=== PATIENT | female | born 1935 | race Caucasian/White ===

== ENCOUNTER → 2016-11-29 | Day surgery (SDC) | payer OTHER, MEDICARE ==
[2016-11-27 11:56] VITALS: BMI 25.0
[~2016-11-29] VITALS: Ht 162.6 cm; Wt 68.2 kg
[~2016-11-29] MED LIST: AMIO200T PO; CALC500T83 PO; CLON0.1T12 PO; CRD200 PO; FRS/40 PO; HydrALAZINE HCL 20 MG/ML VIAL ONE; LATA0.5S OPB; LEVO75TA5 PO; LIDOCAINE HCL 2% 2 ML VIAL (20MG/ML) ONE; METO50TA7 PO; MIDAZOLAM HCL 1 MG/ML 2ML VIAL ONE; ONDANSETRON INJ 2 MG/ML 2 ML VIAL ONE; OXYC1TAB3 PO; POTA20TA16 PO; PROPOFOL IV EMULSION 10 MG/ML 20 ML VIAL IV ONE; TIMO0.5S35 OPB; XRL15 PO
[2016-11-29 14:25] VITALS: TEMP 36.5
[2016-11-29 14:26] VITALS: Ht 162.6 cm; Wt 68.2 kg
--- NOTE | 2016-11-29 15:21 | GI REPORT ---
Procedure Date: 11/29/2016 2:49 PM Procedure: Colonoscopy Indications: High risk colon cancer surveillance: Personal history of colonic polyps Medicines: Propofol per Anesthesia Complications: No immediate complications. Estimated blood loss: Minimal. Estimated Blood Loss: Estimated blood loss was minimal. Procedure: Pre-Anesthesia Assessment: - Prior to the procedure, a History and Physical was performed, and patient medications and allergies were reviewed. The patient's tolerance of previous anesthesia was also reviewed. The risks and benefits of the procedure and the sedation options and risks were discussed with the patient. All questions were answered, and informed consent was obtained. Prior Anticoagulants: The patient has taken no previous anticoagulant or antiplatelet agents. ASA Grade Assessment: III - A patient with severe systemic disease. After reviewing the risks and benefits, the patient was deemed in satisfactory condition to undergo the procedure. After I obtained informed consent, the scope was passed under direct vision. Throughout the procedure, the patient's blood pressure, pulse, and oxygen saturations were monitored continuously. The On-site loaner was introduced through the anus and advanced to the cecum, identified by appendiceal orifice and ileocecal valve. The colonoscopy was performed without difficulty. The patient tolerated the procedure well. The quality of the bowel preparation was fair. Findings: The perianal and digital rectal examinations were normal. Pertinent negatives include normal sphincter tone, no palpable rectal lesions and no anal lesion or abnormality was detected. A 5 mm polyp was found at 30 cm proximal to the anus. The polyp was sessile. The polyp was removed with a cold snare. Resection and retrieval were complete. Estimated blood loss was minimal. Verification of patient identification for the specimen was done by the physician and echocardiograph technician using the patient's name and medical record number. The exam was otherwise without abnormality. The retroflexed view of the distal rectum and anal verge was normal and showed no anal or rectal abnormalities. Impression: - One 5 mm polyp at 30 cm proximal to the anus, removed with a cold snare. Resected and retrieved. - The examination was otherwise normal. - The distal rectum and anal verge are normal on retroflexion view. Recommendation: - Discharge patient to home (ambulatory). - Patient has a contact number available for emergencies. The signs and symptoms of potential delayed complications were discussed with the patient. Return to normal activities tomorrow. Written discharge instructions were provided to the patient. - Resume regular diet. - Repeat colonoscopy for surveillance based on pathology results. MD Homer Islas MD 11/29/2016 3:21:54 PM This report has been signed electronically. Note Initiated On: 11/29/2016 2:49 PM I attest to the content of the Intraoperative Record and orders documented therein, exceptions below
--- NOTE | 2016-11-29 15:24 | Discharge Instructions ---
Endoscopy Patient Instructions Date / Procedure(s) Performed Nov 29, 2016. Colonoscopy Allergy Information Coded Allergies: Atorvastatin (Verified Allergy, Unknown, LOUIS's, 11/29/16) Bupropion (Verified Allergy, Unknown, LOUIS's, 11/29/16) ARTUR Inhibitors (Verified Adverse Reaction, Unknown, Cough, 11/29/16) Discharge Date / Findings Nov 29, 2016. small polyp at 30 cm removed Medication Instructions Stopped Medication(s): XARELTO LAST DOSE 11/24/16 Restart Stopped Medication(s): Reported Home Medications Medications Dose Route/Sig Max Daily Dose Days Date Category Klor-Con (Potassium Chloride) 20 Meq Tabcr 20 Meq PO DAILY PRN 11/27/16 Reported Calcium 500 Mg Tab 1 Tab PO BID 11/27/16 Reported Levothyroxine Sodium 75 Mcg Tab 1 Tab PO QAM 09/03/16 Reported Lasix (Furosemide) 40 Mg Tab 40 Mg PO DAILY PRN 09/03/16 Reported Timoptic (Timolol Maleate (Ophth)) 0.5 % Nancy 1 Drops OPB QAM 09/03/16 Reported Xalatan 0.005% Oph Nancy (Latanoprost) 0.005 % Nancy 1 Drops OPB 09/03/16 Reported Toprol-Xl (Metoprolol Succinate) 50 Mg Tabcr 50 Mg PO BID 09/03/16 Reported Catapres (Clonidine Hcl) 0.1 Mg Tab 1 Tab PO QPM 09/03/16 Reported Xarelto (Rivaroxaban) 15 Mg Tab 1 Tab PO QPM 09/03/16 Reported Cordarone (Amiodarone Hcl) 200 Mg Tab 200 Mg PO QPM 11/14/12 Reported Reported Home Medications Medications Dose Route/Sig Max Daily Dose Days Date Category Klor-Con (Potassium Chloride) 20 Meq Tabcr 20 Meq PO DAILY PRN 11/27/16 Reported Calcium 500 Mg Tab 1 Tab PO BID 11/27/16 Reported Levothyroxine Sodium 75 Mcg Tab 1 Tab PO QAM 09/03/16 Reported Lasix (Furosemide) 40 Mg Tab 40 Mg PO DAILY PRN 09/03/16 Reported Timoptic (Timolol Maleate (Ophth)) 0.5 % Nancy 1 Drops OPB QAM 09/03/16 Reported Xalatan 0.005% Oph Nancy (Latanoprost) 0.005 % Nancy 1 Drops OPB 09/03/16 Reported Toprol-Xl (Metoprolol Succinate) 50 Mg Tabcr 50 Mg PO BID 09/03/16 Reported Catapres (Clonidine Hcl) 0.1 Mg Tab 1 Tab PO QPM 09/03/16 Reported Xarelto (Rivaroxaban) 15 Mg Tab 1 Tab PO QPM 09/03/16 Reported Cordarone (Amiodarone Hcl) 200 Mg Tab 200 Mg PO QPM 11/14/12 Reported Provider Instructions Activity Restrictions - No exercising or heavy lifting for 24 hours. - Do not drink alcohol the day of the procedure. - Do not drive a car or operate machinery until the day after the procedure. - Do not make any important decisions or sign important papers in 24 hours after the procedure. Following Day: - Return to full activity which may include returning to work/school. Diet Start your diet with liquids and light foods (jello, soup, juice, toast). Then eat your usual diet if not nauseated. Treatment For Common After Affects For mild abdominal pain, bloating, or excessive gas: - Rest - Eat lightly - Lie on right side Follow-Up Information Follow-up with DR GRAF as scheduled Anesthesia Information What You Should Know You have had a procedure that required some medicine to reduce anxiety and discomfort. This treatment is called moderate sedation. After receiving the treatment, you may be sleepy, but you will be able to breathe on your own. The effects of the treatment may last for several hours. Follow these instructions along with Activity/Diet recommendations noted above: * Do NOT do anything where dizziness or clumsiness would be dangerous. * Rest quietly at home today, then you can be up and about tomorrow. * Have a responsible person stay with you the rest of today. * You may have had an I.V. today. If so, you may take the dressing off later today. Recommendations Call your doctor if: * Trouble breathing * Continuous vomiting for more than 24 hours * Temperature above 101 degrees * Severe abdominal pain or bloating * Pain not relieved by pain medicine ordered * There is increased drainage or redness from any incision * A large amount of rectal bleeding greater than 2-3 tablespoons. (If you had a polyp/s removed or have hemorrhoids, a small amount of blood - from the rectum is to be expected.) * You have any unanswered questions or concerns. IN THE EVENT OF A SERIOUS EMERGENCY, GO TO THE NEAREST EMERGENCY ROOM Your discharge instructions were prepared by provider Homer Escobar. Patient Instructions Signature Page Flora Ferris Patient (or Guardian) Signature/Date: I have read and understand the instructions given to me by my caregivers. Caregiver/RN/Doctor Signature/Date: The above-named patient and/or guardian has received patient instructions on this date. + Original Patient Signature Page (only) stays with chart. Please make copy for patient.
--- NOTE | 2016-11-29 15:49 | Anesthesiology Progress Note ---
Anesthesia Post Op Note Date & Time Nov 29, 2016 at 15:49 Vital Signs Pain Intensity: 0 Vital Signs Past 12 Hours Date Time Temp Pulse Resp B/P Pulse Ox O2 Delivery O2 Flow Rate FiO2 11/29/16 15:21 57 18 178/76 94 Room Air 11/29/16 14:25 36.5 55 18 191/89 95 Room Air Notes Mental Status: alert / awake / arousable, participated in evaluation Pt Amnestic to Procedure: Yes Nausea / Vomiting: adequately controlled Pain: adequately controlled Airway Patency, RR, SpO2: stable & adequate BP & HR: stable & adequate Hydration State: stable & adequate Anesthetic Complications: no major complications apparent
[2016-11-29 16:32] VITALS: BP 166/72; PULSE 56; O2SAT 94
== END | disposition home or self-care (01) ==
LOC: C.GI 14:02
PROVIDERS: ATTEND Internal Medicine Gastroenterology
DX: Z12.11 Encounter for screening for malignant neoplasm of colon (principal); Z86.010 Personal history of colon polyps; K63.5 Polyp of colon; E78.5 Hyperlipidemia, unspecified; I12.9 Hypertensive chronic kidney disease with stage 1 through stage 4 chronic kidney disease, or unspecified chronic kidney disease; N18.9 Chronic kidney disease, unspecified; Z91.041 Radiographic dye allergy status; Z88.8 Allergy status to other drugs, medicaments and biological substances

== ENCOUNTER → 2017-03-28 | Outpatient (CLI) | payer OTHER, MEDICARE ==
[~2017-03-28] MED LIST changes: -HydrALAZINE HCL 20 MG/ML VIAL ONE; -LIDOCAINE HCL 2% 2 ML VIAL (20MG/ML) ONE; -MIDAZOLAM HCL 1 MG/ML 2ML VIAL ONE; -ONDANSETRON INJ 2 MG/ML 2 ML VIAL ONE; -PROPOFOL IV EMULSION 10 MG/ML 20 ML VIAL IV ONE
[2017-03-28 14:02] LABS: THYROID STIMULATING HORMONE 3.14 uIu/ml (0.300-4.500)
== END | disposition home or self-care (01) ==
LOC: C.LAB 12:29
PROVIDERS: ATTEND Internal Medicine Endocrinology, Diabetes & Metabolism
DX: Z79.899 Other long term (current) drug therapy (principal); D47.2 Monoclonal gammopathy

== ENCOUNTER → 2017-05-27 | Outpatient (CLI) | payer OTHER, MEDICARE ==
[2017-05-27 13:08] LABS: ALT/SGPT 24 U/L (12-78); BLOOD UREA NITROGEN 14 mg/dl (7-18); BUN/CREATININE RATIO 12.6 (10-20); CARBON DIOXIDE 28 mmol/L (21-32); CHLORIDE 106 mmol/L (98-107); GLUCOSE 86 mg/dl (70-99); POTASSIUM 3.9 mmol/L (3.5-5.1); SODIUM 140 mmol/L (136-145)
[2017-05-27 13:11] LABS: ALKALINE PHOSPHATASE 72 U/L (45-117); AST/SGOT 22 U/L (15-37)
== END | disposition home or self-care (01) ==
LOC: C.LAB1850 11:12
PROVIDERS: ATTEND Internal Medicine Cardiovascular Disease
DX: E78.5 Hyperlipidemia, unspecified (principal)

== ENCOUNTER 2017-06-30 07:53 | Emergency (ER) | payer OTHER, MEDICARE ==
[~2017-06-30] VITALS: Ht 160 cm; Wt 75.2 kg
[~2017-06-30 07:53] MED LIST changes: -CRD200 PO; -OXYC1TAB3 PO
[2017-06-30 08:04] VITALS: TEMP 36.6; Ht 160 cm; Wt 75.2 kg
[2017-06-30] MEDS ORDERED: OXYCODONE HCL IR 5 MG TAB (IMMEDIATE RELEASE) PO STA (08:23)
[2017-06-30] MEDS ORDERED: METOPROLOL SUCC 50MG EXT REL TAB PO STA (08:28)
[2017-06-30] MEDS ORDERED: CRD200 PO (08:46)
--- NOTE | 2017-06-30 09:09 | DIAGNOSTIC IMAGING REPORT ---
L KNEE 3 VIEWS CLINICAL HISTORY: l knee pain pain COMPARISON: None. DISCUSSION: Moderate degenerative change all major joint compartments. Moderate degenerative irregularity of the articular services. Small reactive osteophytes throughout. No well-defined fracture dislocation. No significant joint effusion. There is no evidence for soft tissue swelling. IMPRESSION: Rather significant degenerative change all major joint compartments. No acute process. The above report was generated using voice recognition software. It may contain grammatical, syntax or spelling errors. Electronically signed by: George Barbosa M.D. 06/30/2017 9:07 AM Dictated Date/Time: 06/30/2017 9:07 AM
--- NOTE | 2017-06-30 09:10 | DIAGNOSTIC IMAGING REPORT ---
L VENOUS DOPP LOWER EXT UNILAT CLINICAL HISTORY: l knee pain recent travel pain. Edema. TECHNIQUE: Venous Doppler COMPARISON STUDY: None FINDINGS: Normal study IMPRESSION: Normal study. The above report was generated using voice recognition software. It may contain grammatical, syntax or spelling errors. Electronically signed by: George Barbosa M.D. 06/30/2017 9:08 AM Dictated Date/Time: 06/30/2017 9:08 AM
[2017-06-30] MEDS ORDERED: MoRPHine SULFATE 4 MG/ML 1 ML CARP\\VIAL IM STA (09:38)
--- NOTE | 2017-06-30 10:00 | DIAGNOSTIC IMAGING REPORT ---
L LOWER EXTREMITY WITHOUT CT DOSE: 181.25 mGy.cm HISTORY: Pain l knee pain TECHNIQUE: Multiaxial CT images of the left knee were performed and reformatted in the sagittal and coronal plane without the use of contrast. A dose lowering technique was utilized adhering to the principles of ALARA. COMPARISON: None. FINDINGS: Considerable degenerative change all major joint compartments. Moderate peripheral osteophytic reaction throughout all components of the joint. No evidence for fracture or acute bony abnormality. No significant joint effusion. IMPRESSION: Considerable degenerative change all major joint compartments. No acute process. The above report was generated using voice recognition software. It may contain grammatical, syntax or spelling errors. Electronically signed by: George Barbosa M.D. 06/30/2017 9:59 AM Dictated Date/Time: 06/30/2017 9:54 AM
[2017-06-30 12:18] VITALS: BP 163/108; PULSE 111; O2SAT 98
[2017-06-30] MEDS ORDERED: OXYC1TAB3 PO (12:21)
--- NOTE | 2017-06-30 14:41 | EMERGENCY ROOM VISIT NOTE ---
History Report prepared by Luanibkirill: Kathrin Chi Under the Supervision of: Dr. Jett Goodwin D.O. First contact with patient: 07:57 Chief Complaint: KNEEPAIN Stated Complaint: KNEE PAIN History of Present Illness The patient is an 81 year old female who presents to the Emergency Room with complaints of intermittent left knee pain for the past 3 weeks. She is accompanied by her daughter. She reports she was in the country of [facility] on June 07 for a wedding, when she fell and fractured her left wrist. She denies any loss of consciousness or other traumatic injuries. She was treated with a cast and sling when she returned to [place], and locally has followed with Dr. Costello. At the time of the fall, her left knee was swollen and painful, but CT's at [facility] in [place] were negative and the pain initially improved. Today, her pain has worsened to the point that she is unable to bear weight. The majority of her pain is in the posterior left knee. She rates her current discomfort as a 10/10 in severity. Tylenol has provided minimal relief. She denies any tingling or numbness in her foot. She denies any swelling in her calf. The patient has a history of hypertension and atrial fibrillation and notes she did not take her medications last night or this morning. She denies any headache, change in vision, fevers, chest pain, shortness of breath, nausea , vomiting, diarrhea, and pain with urination. Source of History: patient Onset: June 09, 2017 Position: knee (left) Symptom Intensity: 8/10 Timing: intermittent Modifying Factors (Worsening): movement (walking) Modifying Factors (Relieving): tylenol Associated Symptoms: No LOC, No fevers, No headache, No chest pain, No SOB, No nausea, No vomiting, No melena, No diarrhea, No urinary symptoms, No numbness (left foot) Review of Systems See HPI for pertinent positives & negatives. A total of 10 systems reviewed and were otherwise negative. Past Medical & Surgical Medical Problems: (1) Atrial fibrillation (2) Hypertension (3) Left wrist fracture Family History Cancer Diabetes mellitus Heart disease Hypertension Lung disease Social History Smoking Status: Former Smoker Alcohol Use: occasionally Drug Use: none Marital Status: Housing Status: lives alone Occupation Status: retired Current/Historical Medications Scheduled Amiodarone HCl (Amiodarone HCl), 200 MG PO DAILY Calcium (Calcium), 500 MG PO BID Clonidine Hcl (Catapres), 0.1 MG PO QPM Latanoprost (Xalatan 0.005% Oph Nancy), 1 DROPS OPB HS Levothyroxine Sodium (Levothyroxine Sodium), 75 MCG PO QAM Metoprolol Succ (Toprol Xl) (Toprol-Xl), 50 MG PO BID Rivaroxaban (Xarelto), 15 MG PO QPM Timolol Maleate (Ophth) (Timoptic), 1 DROPS OPB QAM Scheduled PRN Furosemide (Lasix), 40 MG PO DAILY PRN for LEG SWELLING Oxycodone Immediate Rel Tab (Roxicodone Ir), 5 MG PO Q6H PRN for Pain Potassium Ext Rel (Klor-Con), 20 MEQ PO DAILY PRN for WITH LASIX Allergies Coded Allergies: Atorvastatin (Verified Allergy, Unknown, LOUIS's, 06/30/17) Bupropion (Verified Allergy, Unknown, LOUIS's, 06/30/17) ARTUR Inhibitors (Verified Adverse Reaction, Unknown, Cough, 06/30/17) Physical Exam Vital Signs Date Time Temp Pulse Resp B/P (MAP) Pulse Ox O2 Delivery O2 Flow Rate FiO2 06/30/17 12:18 111 18 163/108 98 Room Air 06/30/17 11:11 87 18 167/106 98 Room Air 06/30/17 09:38 88 18 190/110 98 Room Air 06/30/17 08:13 94 06/30/17 08:04 36.6 94 20 210/123 94 Room Air Physical Exam GENERAL: Patient is alert, well appearing, well nourished, no distress, non- toxic EYE EXAM: normal conjunctiva OROPHARYNX: no exudate, no erythema, lips, buccal mucosa, and tongue normal and mucous membranes are moist NECK: supple, no nuchal rigidity, no adenopathy, non-tender LUNGS: Clear to auscultation. Normal chest wall mechanics HEART: no murmurs, S1 normal and S2 normal ABDOMEN: abdomen soft, non-tender, normo-active bowel sounds, no masses, no rebound or guarding. BACK: Back is symmetrical on inspection and there is no deformity, no midline tenderness, no CVA tenderness. SKIN: no rashes and no bruising UPPER EXTREMITIES: Left upper extremity in forearm cast. Patient is able to wiggle fingers, gross sensation intact. LOWER EXTREMITIES: Flexion, extension of the hip and ankle without tenderness, flexion of the knee greater than 30 degrees with moderate/severe tenderness. Good pulses in popliteal fossa and DP. Unable to appreciate PT bilaterally. Warm , gross sensation intact. No pitting edema. Calves are equal bilaterally. No erythema of the knee. Skin is intact. NEURO EXAM: Normal sensorium Medical Decision & Procedures ER Provider Diagnostic Interpretation: Radiology results as stated below per my review and the radiologist's interpretation: L LOWER EXTREMITY WITHOUT CT DOSE: 181.25 mGy.cm HISTORY: Pain l knee pain TECHNIQUE: Multiaxial CT images of the left knee were performed and reformatted in the sagittal and coronal plane without the use of contrast. A dose lowering technique was utilized adhering to the principles of ALARA. COMPARISON: None. FINDINGS: Considerable degenerative change all major joint compartments. Moderate peripheral osteophytic reaction throughout all components of the joint. No evidence for fracture or acute bony abnormality. No significant joint effusion. IMPRESSION: Considerable degenerative change all major joint compartments. No acute process. The above report was generated using voice recognition software. It may contain grammatical, syntax or spelling errors. Electronically signed by: George Barbosa M.D. 06/30/2017 9:59 AM L VENOUS DOPP LOWER EXT UNILAT CLINICAL HISTORY: l knee pain recent travel pain. Edema. TECHNIQUE: Venous Doppler COMPARISON STUDY: None FINDINGS: Normal study IMPRESSION: Normal study. The above report was generated using voice recognition software. It may contain grammatical, syntax or spelling errors. Electronically signed by: George Barbosa M.D. 06/30/2017 9:08 AM L KNEE 3 VIEWS CLINICAL HISTORY: l knee pain pain COMPARISON: None. DISCUSSION: Moderate degenerative change all major joint compartments. Moderate degenerative irregularity of the articular services. Small reactive osteophytes throughout. No well-defined fracture dislocation. No significant joint effusion. There is no evidence for soft tissue swelling. IMPRESSION: Rather significant degenerative change all major joint compartments. No acute process. The above report was generated using voice recognition software. It may contain grammatical, syntax or spelling errors. Electronically signed by: George Barbosa M.D. 06/30/2017 9:07 AM Medications Administered Medications (Trade) Dose Ordered Sig/Merry Route Start Time Stop Time Status Last Admin Dose Admin Oxycodone HCl (Roxicodone Immediate Rel Tab) 5 mg NOW STAT PO 06/30/17 08:23 06/30/17 08:24 DC 06/30/17 08:29 5 MG Metoprolol Succinate (Toprol Xl Tab) 50 mg NOW STAT PO 06/30/17 08:28 06/30/17 08:29 DC 06/30/17 08:31 50 MG Morphine Sulfate (MoRPHine SULFATE INJ) 4 mg NOW STAT IM 06/30/17 09:38 06/30/17 09:40 DC 06/30/17 09:59 4 MG ED Course ED COURSE: Vital signs were reviewed and showed the patient is hypertensive. The patients medical record was reviewed The above diagnostic studies were performed and reviewed. ED treatments and interventions as stated above. 0811: The patient was evaluated in room B11. A complete history and physical examination was performed. 0823: Oxycodone HCl 5 mg PO. 0828: Toprol Xl tablet 50 mg PO. 0938: Morphine Sulfate 4 mg IM. 1020: I updated the patient on her results so far. She is resting comfortably. 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 1130: Case Management has spoken to the patient and her daughter. There will be a bed available at [facility] in a few days if the patient is comfortable going home until then. 1220: Upon reevaluation, the patient is feeling well and feels comfortable going home until [facility] has a bed open. I discussed my findings with the patient and she understands and agrees with the treatment plan. Based on the patients age, coexisting illnesses, exam and lab findings the decision to treat as an outpatient was made. The patient remained stable while under my care. The patient appeared well at the time of discharge. Medical Decision Etiologies such as fracture, dislocation, neurovascular compromise, compartment syndrome, soft tissue injury, as well as others were entertained. Patient is an 81-year-old female that presents to ER for severe pain behind her left knee. Neurovascularly intact. No tenderness in the hip or ankle. Full range of motion in the hip and ankle. X-ray of the knee and CT of the knee shows no obvious fracture. Patient was updated at bedside. Duplex shows no clots. Pain is solely located in the popliteal fossa. Is uncertain to cause at this time. Initially tried a rehabilitation which is not accepted to [facility]. Offered admission the patient prefers to go home. Patient was evaluated by care management and was discharged with OxyIR to follow-up with orthopedics and [facility]. Unable to perform MRI. I did chest importance of being extremely careful and not following as she is on blood thinners. Care management will attempt to schedule appointment with orthopedics tomorrow or Saturday. Discussed with Pt concerning signs and symptoms to watch out for. Pt was instructed to follow up with their PCP and discussed with the patient their option to return to the ED at anytime for persistent or worsening symptoms. The appropriate anticipatory guidance and out-patient management, including indications for return to the emergency department, were explained at length to the patient and understood. Medication Reconcilliation Current Medication List: was personally reviewed by me Blood Pressure Screening Patient's blood pressure: Elevated blood pressure Blood pressure disposition: Elevated BP felt to be situational Impression Primary Impression: Knee pain Additional Impression: Ambulatory dysfunction Scribe Attestation The scribe's documentation has been prepared under my direction and personally reviewed by me in its entirety. I confirm that the note above accurately reflects all work, treatment, procedures, and medical decision making performed by me. Departure Information Dispostion Home / Self-Care Prescriptions Oxycodone Immediate Rel Tab (ROXICODONE IR) 5 Mg Tab 5 MG PO Q6H Y for Pain, #14 TAB Prov: Jett Goodwin, 06/30/17 Referrals Georgiana Serrato,D.OMark (PCP) Patient Instructions ED Knee Pain O, My [facility] Additional Instructions Please follow up with your primary with in the next 24 hours. Any worsening of your symptoms, please return to the ED immediately. This includes any fevers greater than 100.4, worsening pain, falls, numbness or weakness in the leg, or any other concerning signs or symptoms from your standpoint. You were given medications during this visit that will inhibit your ability to drive, operate machinery and work. Please do NOT drive, operate machinery or work for the next 12hrs. You were also given a prescription for a narcotic/Oxy IR. While taking this medication you should also not drive, operate machinery and or work. Please follow up with health [facility] and orthopedics as soon as possible. Problem Qualifiers Primary Impression: Knee pain Chronicity: acute Laterality: left Qualified Codes: M25.562 - Pain in left knee
== END 2017-06-30 12:50 | disposition home or self-care (01) ==
LOC: EDBD 07:53 → C.EDB 07:55
DX: M25.562 Pain in left knee (principal); W19.XXXD Unspecified fall, subsequent encounter; I10 Essential (primary) hypertension; I48.91 Unspecified atrial fibrillation; Z87.891 Personal history of nicotine dependence; Z80.9 Family history of malignant neoplasm, unspecified; Z83.3 Family history of diabetes mellitus; Z82.49 Family history of ischemic heart disease and other diseases of the circulatory system; Z79.899 Other long term (current) drug therapy; Z79.01 Long term (current) use of anticoagulants

== ENCOUNTER → 2017-09-23 | Outpatient (CLI) | payer OTHER, MEDICARE ==
[~2017-09-23] MED LIST changes: -AMIO200T PO; +CRD200 PO; +OXYC1TAB3 PO
[2017-09-23 16:25] LABS: THYROID STIMULATING HORMONE 1.61 uIu/ml (0.300-4.500)
== END | disposition home or self-care (01) ==
LOC: C.LAB1850 14:48
PROVIDERS: ATTEND Internal Medicine Endocrinology, Diabetes & Metabolism
DX: Z51.81 Encounter for therapeutic drug level monitoring (principal); Z79.899 Other long term (current) drug therapy

== ENCOUNTER → 2018-01-16 | Day surgery (SDC) | payer OTHER, MEDICARE ==
[~2018-01-16] VITALS: Ht 160 cm; Wt 72.0 kg
[~2018-01-16] MED LIST changes: +LIDOCAINE HCL 2% 2 ML VIAL (20MG/ML) ONE; -METO50TA7 PO; +METO50TA8 PO; -OXYC1TAB3 PO; +PROPOFOL IV EMULSION 10 MG/ML 20 ML VIAL IV ONE
[2018-01-16 06:47] VITALS: BP 185/118; PULSE 101; TEMP 37.1; O2SAT 95; Ht 160 cm; Wt 72.0 kg
[2018-01-16 07:35] VITALS: BP 167/113; PULSE 95; O2SAT 99
--- NOTE | 2018-01-16 07:37 | History & Physical Bridge Note ---
H&P Re-Evaluation Bridge Note: I have examined the patient, reviewed the History & Physical and in the interval since the performance of the History & Physical I have noted the following changes of clinical significance: No changes noted. I reviewed the indications, procedure, risks and alternatives with her and she understands and agrees to proceed. Consent obtained.
[2018-01-16 07:40] VITALS: BP 155/91; PULSE 49; O2SAT 99
--- NOTE | 2018-01-16 07:45 | Cardioversion ---
Electricial Cardioversion Rpt Date of Service: January 16, 2018 Electrical Cardioversion Rprt The patient was brought to the laboratory being NPO after midnight and was identified in the laboratory, connected to the recording apparatus including electrocardiographic monitoring, noninvasive blood pressure monitoring and pulse oximetry. Anteroposterior patch electrodes were placed. The patient was anesthetized by the anesthesia department. Once adequate anesthesia was obtained a synchronized biphasic shock was delivered using 200 J with conversion to a sinus rhythm. The patient awoke from the anesthetic without sequela, will be observed briefly and then discharged.
[2018-01-16 07:50] VITALS: BP 136/86; PULSE 50; O2SAT 99
--- NOTE | 2018-01-16 08:27 | Anesthesiology Progress Note ---
Anesthesia Post Op Note Date & Time Jan 16, 2018 at 08:27 Vital Signs Pain Intensity: 0 Vital Signs Past 12 Hours Date Time Temp Pulse Resp B/P (MAP) Pulse Ox O2 Delivery O2 Flow Rate FiO2 01/16/18 08:15 48 16 143/92 (109) 95 Room Air 01/16/18 08:13 49 16 141/95 (110) 95 Room Air 01/16/18 08:03 49 16 132/90 (104) 95 Room Air 01/16/18 07:53 50 16 143/92 (109) 95 Room Air 01/16/18 07:50 50 18 136/86 99 Room Air 01/16/18 07:40 49 18 155/91 99 Nasal Cannula 4 01/16/18 07:35 95 18 167/113 99 Nasal Cannula 4 01/16/18 06:47 37.1 101 18 185/118 (140) 95 Room Air Notes Mental Status: alert / awake / arousable, participated in evaluation Pt Amnestic to Procedure: Yes Nausea / Vomiting: adequately controlled Pain: adequately controlled Airway Patency, RR, SpO2: stable & adequate BP & HR: stable & adequate Hydration State: stable & adequate Anesthetic Complications: no major complications apparent
--- NOTE | 2018-01-16 08:40 | Discharge Instructions ---
Discharge Instructions Date of Service Jan 16, 2018. Admission Reason for Admission: Atrial fibrillation Discharge Discharge Diagnosis / Problem: Electrical cardioversion Discharge Goals Goal(s): Improve disease control Activity Recommendations Activity Limitations: resume your previous activity . Instructions / Follow-Up Instructions / Follow-Up ACTIVITY RECOMMENDATIONS: * May resume driving tomorrow. SPECIAL CARE: * May apply burn ointment for skin irritation. * Please contact physician for any lightheadedness, dizziness or palpitations. Current Hospital Diet Patient's current hospital diet: AHA Diet (Heart Healthy) Discharge Diet Recommended Diet: AHA Diet (Heart Healthy) Pending Studies Studies pending at discharge: no Medical Emergencies . Who to Call and When: Medical Emergencies: If at any time you feel your situation is an emergency, please call 911 immediately. . Non-Emergent Contact Non-Emergency issues call your: Primary Care Provider . . "Provider Documentation" section prepared by Dmitri Garland. .
[2018-01-16 08:45] VITALS: BP 135/58; PULSE 48; O2SAT 95
== END | disposition home or self-care (01) ==
LOC: C.CATH 06:24
PROVIDERS: ATTEND Internal Medicine Cardiovascular Disease
DX: I48.0 Paroxysmal atrial fibrillation (principal); I12.9 Hypertensive chronic kidney disease with stage 1 through stage 4 chronic kidney disease, or unspecified chronic kidney disease; N18.3 Chronic kidney disease, stage 3 (moderate); E78.5 Hyperlipidemia, unspecified; I42.9 Cardiomyopathy, unspecified; E03.9 Hypothyroidism, unspecified; M81.0 Age-related osteoporosis without current pathological fracture; F17.200 Nicotine dependence, unspecified, uncomplicated; Z82.49 Family history of ischemic heart disease and other diseases of the circulatory system

== ENCOUNTER 2022-03-18 21:28 | Inpatient (IN) ==
--- NOTE | 2022-03-18 21:39 | Emergency Department Note ---
Impression & Plan Hypoxia ADMIT ED Provider Note HPI: The patient is an 86-year-old female with history of atrial fibrillation, on Xarelto, presents the emergency department chief complaint of cough and shortness of breath that has been ongoing since yesterday. In addition patient states that she feels very fatigued during this time. She denies any fevers, on arrival here to the ED she is noted to have an oxygen saturation of 89% and therefore was placed on 2 L nasal cannula oxygen. She is otherwise in no acute distress on my initial evaluation, she does not display any increased work of breathing. She states that she has been compliant with her Xarelto. ROS: -Pulmonary: Cough, shortness of breath -General: Generalized weakness/fatigue *10 point review systems was conducted and is otherwise negative unless stated above *Outpatient medications and allergy history reviewed PE: General: Alert, NAD HEENT: Normocephalic, atraumatic Eyes: Extraocular eye movement is intact, no scleral erythema Pulmonary: Diminished bilateral breath sounds with mild expiratory wheezing bilaterally, no crackles Cardio: Regular rate and rhythm GI: Abdomen is soft, nontender : No suprapubic tenderness MSK: No evidence of trauma or malformation of the extremities, no edema Skin: No evidence of rash Neuro: Alert, no focal deficits Psychiatric: Cooperative quality assurance monitor final: - An order was placed for continuous cardiac monitoring - Patient was noted to be in atrial fibrillation with a rate of 90 CTA CHEST: Moderate cardiomegaly with coronary artery calcifications. No pulmonary embolus or aortic dissection is seen. Atherosclerotic disease of aorta with no aneurysm. Large heterogeneous mass along the right lung base extending nearly over the entire right hemidiaphragm raising the concern for neoplasm. Mild mid upper lung emphysematous changes. Right lower lobe consolidation concerning for pneumonia. Mild lingular atelectasis versus residual infiltrate. Is Degenerative disease of the spine. Radiologist: Jenny Grier MD Study ready at 23:35 and initial results transmitted at 00:00 EKG: Rate: 96 Rhythm: Atrial fibrillation Intervals: Within normal limits ST changes: No ST elevation Time: 2155 Medical Decision Making: Patient presented to the emergency department with a chief complaint of cough and shortness of breath. She is noted to be hypoxic at 89% on room air on arrival in triage, she does not wear any baseline oxygen, she was placed on nasal cannula oxygen with good improvement. IV was established, lab work obtained, patient was placed on radiation monitor. Chest x-ray shows findings concerning for possible right lower lobe pleural effusion per my interpretation, lab work shows leukocytosis with slight left shift, blood cultures were ordered. Given finding on chest x-ray I did order CT angiography of the chest that shows evidence of no pulmonary embolism, no aortic dissection, there is noted to be atherosclerotic disease as well as coronary artery calcifications. There is a large heterogenous mass along the right lung base extending nearly over the entire right hemidiaphragm raising concern for possible neoplasm. Also noted a right lower lobe consolidation concerning for pneumonia. Patient was started on ceftriaxone and azithromycin following blood cultures being obtained. She was given some IV fluid here in the ED, in addition her high-sensitivity troponin level is slightly elevated at 15, no acute ischemic changes are noted on her EKG although CT imaging does show findings of coronary artery calcifications. Patient denies any chest pain. I discussed the above findings with the patient at the bedside, she is resting comfortably, oxygen saturations have remained stable on nasal cannula oxygen. Given all the above findings patient will be admitted for IV antibiotics and likely hematology/oncology consultation in regards to new finding of lung mass in addition to hypoxia. [facility] service was consulted for admission and the patient was in agreement for admission. She was admitted in improved condition for further care * CRITICAL CARE TIME: 45 min -Stabilization of hypoxia with oxygen saturation less than 90% on room air requiring supplemental oxygen for stabilization, time spent at the bedside, interpretation of diagnostic studies and arrangement of admission Diagnosis: 1. Hypoxia, acute 2. Lung mass, newly diagnosed 3. Right-sided pneumonia, community-acquired 4. Elevated high-sensitivity troponin level Disposition: Admission George Anderson DO Emergency Medicine Past Med/Surg History Medical History Atrial fibrillation Hypertension Surgical History History of cardioversion History of ear surgery History of tubal ligation Status post colposcopy Family History (Updated 03/07/20 @ 14:15 by Nel Campbell) Mother Colon cancer Father Hypertension Stroke Other Family history non-contributory No family history of adverse response to anesthesia No family history of bleeding disorder Social History Smoking Status: Current some day smoker Tobacco Type: Cigarettes Cigarettes Per Day: 1-4; Second Hand Exposure: No; Hx Alcohol Use: Yes Alcohol Intake Frequency Comment: occasional Hx Substance Use: No Preferred Language: Bruneian marital status: Single current occupational status: retired Feels Safe at Home: Yes Allergies Allergies Allergy/AdvReac Type Severity Reaction Status Date / Time atorvastatin Allergy Unknown LOUIS's Verified 03/19/22 00:45 bupropion Allergy Unknown LOUIS's Verified 03/19/22 00:45 ARTUR Inhibitors AdvReac Unknown Cough Verified 03/19/22 00:45 Home Meds Home Medications Medication Instructions Recorded Confirmed calcium carbonate 600 mg calcium 600 mg PO BID 05/17/19 03/19/22 (1,500 mg) tablet (Calcium) cholecalciferol (vitamin D3) 25 1,000 unit PO DAILY 05/17/19 03/19/22 mcg (1,000 unit) capsule (Vitamin D3) furosemide 40 mg tablet 40 mg PO DAILY PRN 05/17/19 03/19/22 latanoprost 0.005 % eye drops 1 drp OPB HS 05/17/19 03/19/22 levothyroxine 75 mcg tablet 75 mcg PO DAILY 05/17/19 03/19/22 rivaroxaban 15 mg tablet (Xarelto) 15 mg PO QPM 05/17/19 03/19/22 timolol maleate 0.25 % eye drops 1 drp OPHTHALMIC (EYE) QAM 05/17/19 03/19/22 (Timoptic) metoprolol succinate 50 mg 50 mg PO BID 03/07/21 03/19/22 tablet,extended release 24 hr ferrous sulfate 325 mg (65 mg 325 mg PO DAILY 02/03/22 03/19/22 iron) tablet sacubitril 49 mg-valsartan 51 mg 1 tab PO BID 02/03/22 03/19/22 tablet (Entresto) digoxin 250 mcg (0.25 mg) tablet 250 mcg PO UD 03/19/22 03/19/22 Results & Data (ED) Vital Signs Vital Signs - 24 hr 03/18/22 21:29 03/18/22 21:40 03/18/22 21:42 Pulse Rate 101 H Pulse Rate [Apical] 101 H Pulse Rhythm [Apical] Regular Pulse Strength [Apical] Respiratory Rate 16 22 Respiratory Effort / Characteristics Non-Labored Non-Labored Respiratory Depth Normal Normal Blood Pressure 143/84 H Blood Pressure [Left Arm] 169/119 H Blood Pressure Mean 103 Blood Pressure Mean [Left Arm] 135 Blood Pressure Position [Left Arm] Lying Pulse Oximetry 89 L 96 96 Oxygen Delivery Method Room Air Nasal Cannula Nasal Cannula Oxygen Flow Rate 3 3 Sepsis Recent Fever Within 48 Hours No Sepsis New/Unexplained Change in Mental Status N/A Sepsis Action Taken by Nursing No Action Required 03/18/22 22:45 03/19/22 00:43 Pulse Rate Pulse Rate [Apical] 85 98 H Pulse Rhythm [Apical] Regular Pulse Strength [Apical] Normal Respiratory Rate 20 22 Respiratory Effort / Characteristics Spontaneous Respiratory Depth Normal Blood Pressure Blood Pressure [Left Arm] 155/92 H 170/114 H Blood Pressure Mean Blood Pressure Mean [Left Arm] 113 132 Blood Pressure Position [Left Arm] Sitting Pulse Oximetry 98 95 Oxygen Delivery Method Nasal Cannula Nasal Cannula Oxygen Flow Rate 3 2 Sepsis Recent Fever Within 48 Hours Sepsis New/Unexplained Change in Mental Status Sepsis Action Taken by Nursing Laboratory Data Result diagrams: 03/18/22 21:45 03/18/22 21:45 Lab Results 03/18/22 03/18/22 03/18/22 Range/Units 21:45 21:45 21:45 WBC 13.32 H (4.8-10.8) K/uL RBC 4.27 (4.2-5.4) M/uL Hgb 13.4 (12.0-16.0) g/dL Hct 41.2 (37-47) % MCV 96.5 (80-100) fL MCH 31.4 (25-34) pg MCHC 32.5 (32-36) g/dL RDW Std Deviation 54.1 H (36.4-46.3) fL RDW Coeff of Jenna 15.3 H (11.5-14.5) % Plt Count 254 (130-400) K/uL MPV 9.3 (7.4-10.4) fL Immature Gran % (Auto) 0.3 % Neut % (Auto) 79.6 % Lymph % (Auto) 12.2 % Catron % (Auto) 7.2 % Eos % (Auto) 0.3 % Baso % (Auto) 0.4 % Neut # (Auto) 10.60 H (1.4-6.5) K/uL Lymph # (Auto) 1.63 (1.2-3.4) K/uL Catron # (Auto) 0.96 H (0.11-0.59) K/uL Eos # (Auto) 0.04 (0-0.5) K/uL Baso # (Auto) 0.05 (0-0.2) K/uL Immature Gran # (Auto) 0.04 H (0.00-0.02) K/uL PT 12.4 H (9.0-12.0) Seconds INR 1.2 H (0.9-1.1) APTT 30.3 (21.0-31.0) Seconds PTT Ratio 1.1 VBG pH (7.36-7.41) VBG pCO2 (38-50) mmHg VBG pO2 mmHg VBG HCO3 mmol/L VBG O2 Saturation % VBG Base Excess mEq/L Barometric Pressure mm/Hg Sodium 138 (136-145) mmol/L Potassium 4.3 (3.5-5.1) mmol/L Chloride 105 (98-107) mmol/L Carbon Dioxide 23 (21-32) mmol/L Anion Gap 10 (3-11) BUN 18 (6-23) mg/dl Creatinine 0.99 (0.6-1.2) mg/dl Est Cr Clr Drug Dosing 33.7 ml/min Est GFR ( Amer) 59.8 ml/min Est GFR (Non-Af Amer) 51.6 ml/min BUN/Creatinine Ratio 18.2 (10-20) Glucose 110 H (70-99(Fasting)) mg/dl Calcium 9.5 (8.5-10.1) mg/dl Total Bilirubin 1.4 H (0.2-1.0) mg/dl AST 22 (13-39) U/L ALT 14 (7-52) U/L Alkaline Phosphatase 72 (34-104) U/L Troponin I High Sens 15.8 H (0-14) pg/ml B-Natriuretic Peptide (0-100) pg/ml Total Protein 7.2 (6.0-8.3) gm/dl Albumin 4.5 (3.4-5.0) gm/dl Globulin 2.7 (2.5-4.0) gm/dl Albumin/Globulin Ratio 1.7 (0.9-2) Lipase 8 L (11-82) U/L SARS-CoV-2 (PCR) (Negative) Influenza Type A (PCR) (Neg) Influenza Type B (PCR) (Neg) RSV (RT-PCR) (Neg) 03/18/22 03/18/22 03/18/22 Range/Units 22:00 22:00 22:00 WBC (4.8-10.8) K/uL RBC (4.2-5.4) M/uL Hgb (12.0-16.0) g/dL Hct (37-47) % MCV (80-100) fL MCH (25-34) pg MCHC (32-36) g/dL RDW Std Deviation (36.4-46.3) fL RDW Coeff of Jenna (11.5-14.5) % Plt Count (130-400) K/uL MPV (7.4-10.4) fL Immature Gran % (Auto) % Neut % (Auto) % Lymph % (Auto) % Catron % (Auto) % Eos % (Auto) % Baso % (Auto) % Neut # (Auto) (1.4-6.5) K/uL Lymph # (Auto) (1.2-3.4) K/uL Catron # (Auto) (0.11-0.59) K/uL Eos # (Auto) (0-0.5) K/uL Baso # (Auto) (0-0.2) K/uL Immature Gran # (Auto) (0.00-0.02) K/uL PT (9.0-12.0) Seconds INR (0.9-1.1) APTT (21.0-31.0) Seconds PTT Ratio VBG pH 7.37 (7.36-7.41) VBG pCO2 42 (38-50) mmHg VBG pO2 56 mmHg VBG HCO3 24 mmol/L VBG O2 Saturation 88.8 % VBG Base Excess -1.2 mEq/L Barometric Pressure 729.5 mm/Hg Sodium (136-145) mmol/L Potassium (3.5-5.1) mmol/L Chloride (98-107) mmol/L Carbon Dioxide (21-32) mmol/L Anion Gap (3-11) BUN (6-23) mg/dl Creatinine (0.6-1.2) mg/dl Est Cr Clr Drug Dosing ml/min Est GFR ( Amer) ml/min Est GFR (Non-Af Amer) ml/min BUN/Creatinine Ratio (10-20) Glucose (70-99(Fasting)) mg/dl Calcium (8.5-10.1) mg/dl Total Bilirubin (0.2-1.0) mg/dl AST (13-39) U/L ALT (7-52) U/L Alkaline Phosphatase (34-104) U/L Troponin I High Sens (0-14) pg/ml B-Natriuretic Peptide 876 H (0-100) pg/ml Total Protein (6.0-8.3) gm/dl Albumin (3.4-5.0) gm/dl Globulin (2.5-4.0) gm/dl Albumin/Globulin Ratio (0.9-2) Lipase (11-82) U/L SARS-CoV-2 (PCR) NEGATIVE (Negative) Influenza Type A (PCR) Negative (Neg) Influenza Type B (PCR) Negative (Neg) RSV (RT-PCR) Negative (Neg) Administered Medications Azithromycin 500 mg/ Dextrose 255 mls @ 127.5 mls/hr IV NOW STA Stop: 03/19/22 02:20 Last Admin: 03/19/22 00:52 Dose: 127.5 mls/hr Documented by: [id number] Discontinued Medications Sodium Chloride (Nss 1000ml) 500 mls @ 999 mls/hr IV .Q31M ONE Stop: 03/19/22 00:51 Last Infusion: 03/19/22 01:34 Dose: 0 mls/hr Documented by: [id number] Admin: 03/19/22 00:53 Dose: 999 mls/hr Documented by: [id number] Ceftriaxone Sodium (Rocephin) 1,000 mg in 50 mls @ 100 mls/hr IV NOW STA Stop: 03/19/22 00:50 Last Infusion: 03/19/22 01:33 Dose: 0 mls/hr Documented by: [id number] Admin: 03/19/22 00:51 Dose: 100 mls/hr Documented by: [id number] Ioversol (Optiray 320 125ml) 125 ml IV ONCE ONE Stop: 03/18/22 23:32 Last Admin: 03/18/22 23:31 Dose: 118 ml Documented by: [id number] Discharge Plan Visit Data Chief Complaint: Cough Stated Complaint: VERY TIRED, COUGH ED Provider: George Anderson Discharge Problem: Hypoxia Forms Stand Alone Forms: [facility], [facility]–1983 Prescriptions Prescriptions: No Action metoprolol succinate 50 mg tablet extended release 24 hr 50 mg PO BID RF: 0 furosemide 40 mg tablet 40 mg PO DAILY PRN (Reason: swelling) RF: 0 latanoprost 0.005 % drops 1 drp OPB HS RF: 0 levothyroxine 75 mcg tablet 75 mcg PO DAILY RF: 0 calcium carbonate [Calcium 600] 600 mg calcium (1,500 mg) Tablet 600 mg PO BID RF: 0 cholecalciferol (vitamin D3) [Vitamin D3] 1,000 unit Capsule 1,000 unit PO DAILY RF: 0 Xarelto 15 mg tablet 15 mg PO QPM RF: 0 timolol maleate [Timoptic] 0.25 % Drops 1 drp OPHTHALMIC (EYE) QAM RF: 0 digoxin 250 mcg (0.25 mg) tablet 250 mcg PO UD RF: 0 ferrous sulfate 325 mg (65 mg iron) Tablet 325 mg PO DAILY RF: 0 Entresto 49-51 mg tablet 1 tab PO BID RF: 0 Referrals Referrals: Georgiana Serrato DO [Primary Care Provider] -
[2022-03-18 21:58] LABS: Basophils # (auto) 0.05 K/uL (0-0.2); Basophils % (auto) 0.4 %; Eosinophils # (auto) 0.04 K/uL (0-0.5); Eosinophils % (auto) 0.3 %; Hematocrit (blood only) 41.2 % (37-47); Hemoglobin 13.4 g/dL (12.0-16.0); Immature Granulocytes # (auto) 0.04 K/uL (0.00-0.02); Immature Granulocytes % (auto) 0.3 %; Lymphocytes # (auto) 1.63 K/uL (1.2-3.4); Lymphocytes % (auto) 12.2 %; Mean Corpuscular Hemoglobin 31.4 pg (25-34); Mean Corpuscular Hgb Conc 32.5 g/dL (32-36); Mean Corpuscular Volume 96.5 fL (80-100); Mean Platelet Volume 9.3 fL (7.4-10.4); Monocytes # (auto) 0.96 K/uL (0.11-0.59); Monocytes % (auto) 7.2 %; Neutrophils % (auto) 79.6 %; Platelet Count 254 K/uL (130-400); RDW Coefficient of Variation 15.3 % (11.5-14.5); RDW Standard Deviation 54.1 fL (36.4-46.3); Red Blood Count 4.27 M/uL (4.2-5.4); White Blood Count 13.32 K/uL (4.8-10.8)
[2022-03-18 22:10] LABS: INR 1.2 (0.9-1.1); Partial Thromboplastin Ratio 1.1; Partial Thromboplastin Time 30.3 Seconds (21.0-31.0); Prothrombin Time 12.4 Seconds (9.0-12.0)
[2022-03-18 22:20] LABS: Base Excess VBG -1.2 mEq/L; Oxygen Saturation VBG 88.8 %; pH VBG 7.37 (7.36-7.41)
[2022-03-18 22:28] LABS: Troponin I High Sensitivity 15.8 pg/ml (0-14)
[2022-03-18 22:44] LABS: Albumin Globulin Ratio 1.7 (0.9-2); Albumin Level 4.5 gm/dl (3.4-5.0); BUN Creatinine Ratio 18.2 (10-20); Bilirubin,Total 1.4 mg/dl (0.2-1.0); Calcium 9.5 mg/dl (8.5-10.1); Creatinine Clr Calc Pharmacy 33.7 ml/min; Est GFR (African American) 59.8 ml/min; Est GFR (Non-African American) 51.6 ml/min; Globulin 2.7 gm/dl (2.5-4.0); Potassium 4.3 mmol/L (3.5-5.1); Total Protein 7.2 gm/dl (6.0-8.3)
[2022-03-18 22:51] LABS: Influenza A virus by PCR Negative (Neg); Influenza B virus by PCR Negative (Neg); RSV by PCR Negative (Neg); SARS CoV2 RNA(COVID-19) InHosp NEGATIVE (Negative)
[2022-03-18] MEDS ORDERED: OPTIRAY 320 125ml IV ONE (23:31)
[2022-03-19] MEDS ORDERED: AZITHROMYCIN 500 MG in DEXTROSE 5% 250 ML IV STA (00:21)
[2022-03-19] MEDS ORDERED: SODIUM CHLORIDE 0.9% 1000ML 500 ML IV ONE (00:21)
[2022-03-19] MEDS ORDERED: cefTRIAXone SODIUM 1,000 MG/50 ML BAG IV STA (00:21)
--- NOTE | 2022-03-19 01:16 | History & Physical Report ---
Date of Service March 19, 2022 Assessment & Plan (1) Pneumonia of right lower lobe due to infectious organism: Plan: Right lower lobe pneumonia- Ceftriaxone 1 g IV daily Azithromycin 500 mg IV daily Duonebs every 4 hours while awake and every 2 hours when necessary. Robitussin-DM 10 mils p.o. every 6 hours as needed cough Methylprednisolone 40 mg IV every 8 hours follow blood cultures and sputum cultures and sensitivities COVID-19, RSV and influenza testing all negative (2) Right lower lobe lung mass: Plan: Tobacco cessation counseling Will stop Xarelto, and place on heparin IV in the event that any type of procedure may be performed (3) Elevated troponin I level: Plan: Highly sensitive troponin 15.8 The patient will be admitted to telemetry for serial cardiac enzymes, serial EKG's, cardiac rhythm monitoring and a 2-D echocardiogram with Dopplers. Likely type II MD, supply demand mismatch (4) Hypoxia: Plan: Improved with nasal cannula oxygen (5) Hypertension: Plan: Hypertension/atrial fibrillation- Continue digoxin, metoprolol succinate, Entresto. Hold Xarelto, and change to heparin IV as noted, for potential procedure (6) Atrial fibrillation: Plan: See above (7) Hypothyroidism (acquired): Plan: Continue levothyroxine (8) Glaucoma: Plan: Continue timolol and latanoprost eyedrops History of Present Illness Chief Complaint: The patient presents to the emergency department with complaint of an intermittently productive cough and shortness of breath that began yesterday after being at a democrat where children were present Primary Care Provider: Georgiana Serrato DO The patient is a 86-year-old female with a past medical history including atrial fibrillation, hypertension, CHF, glaucoma, hypothyroidism, chronic anticoagulation with Xarelto. She presents to the emergency department with 24 hours of intermittently productive cough and shortness of breath after attending a gathering with children present. She was found to be hypoxic with a pulse ox of 89% on room air upon arrival to the ED, which improved with placement of 2 L nasal cannula. She does report an approximate 40 pound weight loss over the past year, that she attributes to no interest in eating. Abnormal laboratories: WBC 13.32, hemoglobin 13.4, hematocrit 41.2, total bilirubin 1.4, highly sensitive troponin 15.8 and BNP 876. Imaging studies: Chest x-ray with right pleural effusion CT angiography of chest shows a mass at the right base, and a right lower lobe pneumonia Allergies Allergy/AdvReac Type Severity Reaction Status Date / Time atorvastatin Allergy Unknown LOUIS's Verified 03/19/22 00:45 bupropion Allergy Unknown LOUIS's Verified 03/19/22 00:45 ARTUR Inhibitors AdvReac Unknown Cough Verified 03/19/22 00:45 Home Medications Medication Instructions Recorded Confirmed Type calcium carbonate 600 mg calcium 600 mg PO BID 05/17/19 03/19/22 History (1,500 mg) tablet (Calcium) cholecalciferol (vitamin D3) 25 1,000 unit PO DAILY 05/17/19 03/19/22 History mcg (1,000 unit) capsule (Vitamin D3) furosemide 40 mg tablet 40 mg PO DAILY PRN 05/17/19 03/19/22 History latanoprost 0.005 % eye drops 1 drp OPB HS 05/17/19 03/19/22 History levothyroxine 75 mcg tablet 75 mcg PO DAILY 05/17/19 03/19/22 History rivaroxaban 15 mg tablet (Xarelto) 15 mg PO QPM 05/17/19 03/19/22 History timolol maleate 0.25 % eye drops 1 drp OPHTHALMIC (EYE) QAM 05/17/19 03/19/22 History (Timoptic) metoprolol succinate 50 mg 50 mg PO BID 03/07/21 03/19/22 History tablet,extended release 24 hr ferrous sulfate 325 mg (65 mg 325 mg PO DAILY 02/03/22 03/19/22 History iron) tablet sacubitril 49 mg-valsartan 51 mg 1 tab PO BID 02/03/22 03/19/22 History tablet (Entresto) digoxin 250 mcg (0.25 mg) tablet 250 mcg PO UD 03/19/22 03/19/22 History Past Med/Surg History Medical History (Updated 03/19/22 @ 03:10 by Scott Duque MD) Atrial fibrillation Glaucoma Hypertension Hypothyroidism (acquired) Surgical History History of cardioversion History of ear surgery History of tubal ligation Status post colposcopy Family History (Updated 03/07/20 @ 14:15 by Nel Campbell) Mother Colon cancer Father Hypertension Stroke Other Family history non-contributory No family history of adverse response to anesthesia No family history of bleeding disorder Social History Smoking Status: Current some day smoker Tobacco Type: Cigarettes Cigarettes Per Day: 1-4; Second Hand Exposure: No; Hx Alcohol Use: Yes Alcohol Intake Frequency Comment: occasional Hx Substance Use: No Preferred Language: Montserratian marital status: Single current occupational status: retired Feels Safe at Home: Yes Review of Systems Review of Systems: The patient denies chest pain, palpitations, lower extremity swelling, sore throat, fevers, chills, sweats, nausea, vomiting, diarrhea , constipation, abdominal pain, pelvic pain, blood in urine or stool, dysuria, urinary frequency or urgency, lightheadedness, dizziness, headache, memory loss, loss of consciousness, rash, abnormal bruising or bleeding, imbalance, focal or generalized weakness, numbness or tingling in arms or legs, generalized arthralgias or myalgias, back or neck pain, or night sweats. The review of systems is otherwise negative other than for that already noted above, and at least 10 systems have been reviewed. Physical Exam Physical Exam: The patient is awake, alert and oriented 3, well developed and well nourished, normocephalic and atraumatic, sitting upright in bed, with intermittent moist sounding cough HEENT--PERRL, EOMI, mucous membranes and oropharynx normal Neck--supple. No JVD. No bruits. Thyroid normal, trachea midline, no adenopathy. Heart--normal S1 and S2. No murmurs, rubs or gallops. Lungs--decreased breath sounds right base. No respiratory distress, no accessory muscle use. Abdomen--normal bowel sounds and soft. Nontender. Nondistended, no hernias or masses, no organomegaly. Extremities--no cyanosis or clubbing. No edema. Dermatologic--normal skin turgor, normal color, no abnormal lymph nodes, no rash. Neurologic--cranial nerves II through XII grossly intact. Rheumatologic--normal range of motion. Psychiatric--normal affect. Results & Data Results & Data ([facility]) Vital Signs (Past 12 Hours) Vital Signs Pulse Pulse Resp BP BP Pulse Ox 03/19/22 00:43 98 H 22 170/114 H 95 06/12/22 22:45 85 20 155/92 H 98 03/18/22 21:42 96 03/18/22 21:40 101 H 22 169/119 H 96 03/18/22 21:29 101 H 16 143/84 H 89 L Laboratory Results Laboratory Results WBC 13.32 K/uL (4.8-10.8) H 03/18/22 21:45 RBC 4.27 M/uL (4.2-5.4) 03/18/22 21:45 Hgb 13.4 g/dL (12.0-16.0) 03/18/22 21:45 Hct 41.2 % (37-47) 03/18/22 21:45 MCV 96.5 fL (80-100) 03/18/22 21:45 MCH 31.4 pg (25-34) 03/18/22 21:45 MCHC 32.5 g/dL (32-36) 03/18/22 21:45 RDW Std Deviation 54.1 fL (36.4-46.3) H 03/18/22 21:45 RDW Coeff of Jenna 15.3 % (11.5-14.5) H 03/18/22 21:45 Plt Count 254 K/uL (130-400) 03/18/22 21:45 MPV 9.3 fL (7.4-10.4) 03/18/22 21:45 Immature Gran % (Auto) 0.3 % 03/18/22 21:45 Neut % (Auto) 79.6 % 03/18/22 21:45 Lymph % (Auto) 12.2 % 03/18/22 21:45 [place] % (Auto) 7.2 % 03/18/22 21:45 Eos % (Auto) 0.3 % 03/18/22 21:45 Baso % (Auto) 0.4 % 03/18/22 21:45 Neut # (Auto) 10.60 K/uL (1.4-6.5) H 03/18/22 21:45 Lymph # (Auto) 1.63 K/uL (1.2-3.4) 03/18/22 21:45 [place] # (Auto) 0.96 K/uL (0.11-0.59) H 03/18/22 21:45 Eos # (Auto) 0.04 K/uL (0-0.5) 03/18/22 21:45 Baso # (Auto) 0.05 K/uL (0-0.2) 03/18/22 21:45 Immature Gran # (Auto) 0.04 K/uL (0.00-0.02) H 03/18/22 21:45 PT 12.4 Seconds (9.0-12.0) H 03/18/22 21:45 INR 1.2 (0.9-1.1) H 03/18/22 21:45 APTT 30.3 Seconds (21.0-31.0) 03/18/22 21:45 PTT Ratio 1.1 03/18/22:45 VBG pH 7.37 (7.36-7.41) 03/18/22 22:00 VBG pCO2 42 mmHg (38-50) 03/18/22 22:00 VBG pO2 56 mmHg 03/18/22 22:00 VBG HCO3 24 mmol/L 03/18/22 22:00 VBG O2 Saturation 88.8 % 03/18/22 22:00 VBG Base Excess -1.2 mEq/L 03/18/22 22:00 Barometric Pressure 729.5 mm/Hg 03/18/22 22:00 Sodium 138 mmol/L (136-145) 03/18/22 21:45 Potassium 4.3 mmol/L (3.5-5.1) 03/18/22 21:45 Chloride 105 mmol/L (98-107) 03/18/22 21:45 Carbon Dioxide 23 mmol/L (21-32) 03/18/22 21:45 Anion Gap 10 (3-11) 03/18/22 21:45 BUN 18 mg/dl (6-23) 03/18/22 21:45 Creatinine 0.99 mg/dl (0.6-1.2) 03/18/22 21:45 Est Cr Clr Drug Dosing 33.7 ml/min 03/18/22 21:45 Est GFR ( Amer) 59.8 ml/min 03/18/22 21:45 Est GFR (Non-Af Amer) 51.6 ml/min 03/18/22 21:45 BUN/Creatinine Ratio 18.2 (10-20) 03/18/22 21:45 Glucose 110 mg/dl (70-99(Fasting)) H 03/18/22 21:45 Calcium 9.5 mg/dl (8.5-10.1) 03/18/22 21:45 Total Bilirubin 1.4 mg/dl (0.2-1.0) H 03/18/22 21:45 AST 22 U/L (13-39) 03/18/22 21:45 ALT 14 U/L (7-52) 03/18/22 21:45 Alkaline Phosphatase 72 U/L (34-104) 03/18/22 21:45 Troponin I High Sens 15.8 pg/ml (0-14) H 03/18/22 21:45 B-Natriuretic Peptide 876 pg/ml (0-100) H 03/18/22 22:00 Total Protein 7.2 gm/dl (6.0-8.3) 03/18/22 21:45 Albumin 4.5 gm/dl (3.4-5.0) 03/18/22 21:45 Globulin 2.7 gm/dl (2.5-4.0) 03/18/22 21:45 Albumin/Globulin Ratio 1.7 (0.9-2) 03/18/22 21:45 Lipase 8 U/L (11-82) L 03/18/22 21:45 SARS-CoV-2 (PCR) NEGATIVE (Negative) 03/18/22 22:00 Influenza Type A (PCR) Negative (Neg) 03/18/22 22:00 Influenza Type B (PCR) Negative (Neg) 03/18/22 22:00 RSV (RT-PCR) Negative (Neg) 03/18/22 22:00 Diagnostic Findings [facility] Patient: LINDA POLLARD (Female) : 35 Status: ER Date: 03/18/22 23:33 Room #: History: EVAL FOR PE, SOB Slices: 706 Priors: Tech: Reid Alvarenga @ [phone] Exams: CTA CHEST Contrast: IV Amt: 118 ML OPTIRAY 320 Accession Numbers: [id number] Referring Physician: REFERRED SELF Preliminary Findings Only See Final Report For Complete Findings CTA CHEST: Moderate cardiomegaly with coronary artery calcifications. No pulmonary embolus or aortic dissection is seen. Atherosclerotic disease of aorta with no aneurysm. Large heterogeneous mass along the right lung base extending nearly over the entire right hemidiaphragm raising the concern for neoplasm. Mild mid upper lung emphysematous changes. Right lower lobe consolidation concerning for pneumonia. Mild lingular atelectasis versus residual infiltrate. Is Degenerative disease of the spine. Radiologist: Jenny Grier MD Study ready at 23:35 and initial results transmitted at 00:00 *This report constitutes a preliminary interpretation only. Non-acute findings felt to be unrelated to the clinical presentation may not be discussed in this report. The study will be interpreted and a final report will be generated by the local Radiologist the following shift. To reach the [facility] radiology department call [phone]. If a discrepancy is found between the preliminary and final interpretations of this study, please notify us via our Client Portal at [email or web address], under QA Exams. You can also fax this report with a description of the discrepancy, or include the final report, to our daytime fax number [phone]. If faxing, please indicate the severity of discrepancy using one of the following categories: [ ] 1 - Agree/Informational [ ] 2 - Unlikely to Affect Management [ ] 3 - Possible Eventual Change of Management [ ] 4 - Probable Immediate Change of Management For all other patient related information, please fax us at [phone]. [id number] Code Status & VTE Plan Code Status DNR/DNI VTE Prophylaxis Plan VTE Prophylaxis will be ordered: Yes PG Care Time/CCT Total # of Minutes Spent Total Time Spent with Patient: Total time spent is greater than 50% in coordination of care (as documented) at patient's floor/unit and/or counseling patient: Coding Level of Care Code 47356 Initial Inpt Care Lvl 3 Diagnoses Pneumonia of right lower lobe due to infectious organism J18.9 Hypoxia R09.02 Hypertension I10 Atrial fibrillation I48.91 Right lower lobe lung mass R91.8 Elevated troponin I level R77.8 Hypothyroidism (acquired) E03.9 Glaucoma H40.9
[2022-03-19] MEDS ORDERED: HEPARIN 25000 UNIT/500 ML D5W IV ONE (02:20)
[2022-03-19] MEDS ORDERED: ONDANSETRON INJ 2 MG/ML 2 ML VIAL IV PRN (04:11)
[2022-03-19] MEDS ORDERED: FUROSEMIDE 40 MG TAB PO PRN (04:11)
[2022-03-19] MEDS ORDERED: ACETAMINOPHEN 325 MG TAB PO PRN (04:11)
[2022-03-19 04:41] LABS: Basophils # (auto) 0.03 K/uL (0-0.2); Basophils % (auto) 0.2 %; Eosinophils # (auto) 0.02 K/uL (0-0.5); Eosinophils % (auto) 0.2 %; Hematocrit (blood only) 36.9 % (37-47); Immature Granulocytes # (auto) 0.05 K/uL (0.00-0.02); Immature Granulocytes % (auto) 0.4 %; Lymphocytes # (auto) 1.16 K/uL (1.2-3.4); Lymphocytes % (auto) 9.6 %; Mean Corpuscular Hemoglobin 31.5 pg (25-34); Mean Corpuscular Hgb Conc 32.5 g/dL (32-36); Mean Corpuscular Volume 96.9 fL (80-100); Mean Platelet Volume 9.3 fL (7.4-10.4); Monocytes # (auto) 1.04 K/uL (0.11-0.59); Monocytes % (auto) 8.6 %; Neutrophils # (auto) 9.77 K/uL (1.4-6.5); Platelet Count 193 K/uL (130-400); RDW Coefficient of Variation 15.3 % (11.5-14.5); RDW Standard Deviation 54.4 fL (36.4-46.3); Red Blood Count 3.81 M/uL (4.2-5.4); White Blood Count 12.07 K/uL (4.8-10.8)
[2022-03-19 05:11] LABS: Alanine Aminotransferase 16 U/L (7-52); Albumin Globulin Ratio 1.7 (0.9-2); Albumin Level 3.9 gm/dl (3.4-5.0); Alkaline Phosphatase 62 U/L (34-104); Anion Gap 6 (3-11); Blood Urea Nitrogen 18 mg/dl (6-23); Calcium 8.5 mg/dl (8.5-10.1); Carbon Dioxide 25 mmol/L (21-32); Chloride 105 mmol/L (98-107); Creatinine Clr Calc Pharmacy 37.1 ml/min; Est GFR (African American) 67.1 ml/min; Est GFR (Non-African American) 57.9 ml/min; Globulin 2.3 gm/dl (2.5-4.0); Glucose 121 mg/dl (70-99(Fasting)); Sodium 136 mmol/L (136-145); Total Protein 6.2 gm/dl (6.0-8.3); Troponin I High Sensitivity 12.8 pg/ml (0-14)
[2022-03-19] MEDS: LEVOTHYROXINE SODIUM 75 MCG TABLET PO SCH (05:48)
[2022-03-19 06:10] LABS: Potassium 4.3 mmol/L (3.5-5.1)
[2022-03-19] MEDS ORDERED: ALBUT/IPRATROP 3MG/0.5MG NEB 3 ML VIAL NEB SCH (07:00)
--- NOTE | 2022-03-19 07:58 | XRay Report ---
XR chest 1V portable CLINICAL HISTORY: Atypical chest pain TECHNIQUE: Single frontal radiograph of the chest was obtained. Comparison: Comparison is made to chest radiograph 10/06/2019 FINDINGS: No lines and tubes are seen. Cardiomegaly is noted. The lungs are clear. No evidence of pleural effus ion or pneumothorax. IMPRESSION: No acute chest disease. Cardiomegaly is noted. ACT 112: Negative or not required by law. Electronically signed by: Cristiano Acosta M.D. 03/19/2022 7:56 AM
[2022-03-19] MEDS: CHOLECALCIFEROL 1,000 UNITS 25 MCG TAB PO SCH (08:41)
[2022-03-19] MEDS: VALSARTAN/SACUBITRIL 51/49 MG TAB PO SCH ×2 (08:41→20:05)
[2022-03-19] MEDS: CALCIUM 600MG + VIT D 400 IU TAB PO SCH ×2 (08:41→20:06)
[2022-03-19] MEDS: FERROUS SULFATE 325 MG TAB PO SCH (08:41)
[2022-03-19] MEDS: TIMOLOL GFS 0.5% OPH SOLN 74 DROPS/5 ML BTL OP SCH (08:41)
[2022-03-19] MEDS: METOPROLOL SUCC 50MG EXT REL TAB PO SCH ×2 (08:41→20:05)
--- NOTE | 2022-03-19 08:43 | CT Scan Report ---
CT angio chest PE protocol CLINICAL HISTORY: PE TECHNIQUE: Multidetector row helical CT of the chest was performed with angiographic protocol. Tran l and sagittal reformations were obtained. Coronal and sagittal MIPS were obtained from the axial shaista a set and were submitted for review. Automated dose lowering techniques and/or adjustment according to patient size were utilized for this exam. CT DOSE: 236.70 mGy.cm Comparison: Comparison is made to CT chest 07/02/2009 FINDINGS: Lungs and pleura: There is a trace right pleural effusion with associated atelectasis. Bronchial wall thickening is seen. A large focus of consolidation is seen in the right lower lobe with a few vessel seen. A few foci of emphysema are seen. Heart and pericardium: Cardiomegaly is seen with biatrial enlargement. Vessels: No evidence of pulmonary embolism. Mediastinum and ruben: Multiple enlarged lymph nodes are seen measuring 13 mm in diameter. Chest wall and lower neck: Unremarkable. Abdomen: Unremarkable. Bones: Unremarkable. IMPRESSION: 1. No evidence of pulmonary embolism. 2. A focus of consolidation in the right lower lobe may represent atelectasis or pneumonia. ACT 112: Negative or not required by law. Electronically signed by: Cristiano Acosta M.D. 03/19/2022 8:41 AM
[2022-03-19] MEDS ORDERED: HEPARIN SODIUM/DEXTROSE 25,000 UNITS/500 ML BAG IV SCH (09:00)
[2022-03-19] MEDS ORDERED: Heparin IV Adult Wt-Based Low-Dose *NO* Bolus Protocol IV ONE (09:00)
[2022-03-19] MEDS: cefTRIAXone SODIUM 1,000 MG in DEXTROSE 5% 50 ML IV SCH (09:19)
[2022-03-19] MEDS ORDERED: ALBUT/IPRATROP 3MG/0.5MG NEB 3 ML VIAL NEB PRN (10:07)
[2022-03-19] MEDS: AZITHROMYCIN 500 MG in DEXTROSE 5% 250 ML IV SCH (10:51)
--- NOTE | 2022-03-19 11:38 | Electrocardiogram Report ---
Test Reason : Blood Pressure : / mmHG Vent. Rate : 096 BPM Atrial Rate : 416 BPM P-R Int : 000 ms QRS Dur : 086 ms QT Int : 316 ms P-R-T Axes : 000 065 -43 degrees QTc Int : 399 ms Poor data quality, interpretation may be adversely affected Atrial fibrillation Nonspecific ST and T wave abnormality Abnormal ECG When compared with ECG of 16-JAN-2018 07:43, Atrial fibrillation has replaced Sinus rhythm Vent. rate has increased BY 48 BPM Nonspecific T wave abnormality now evident in Lateral leads Confirmed by Gómez Reinoso ([id number]) on 03/19/2022 11:38:38 AM Referred By: REFERRED SELF Confirmed By:Alcides Reinoso
[2022-03-19] MEDS: methylPREDNISolone 40 MG in SYRINGE 0 ML IV SCH ×2 (13:31→22:38)
[2022-03-19] MEDS: DIGOXIN 0.25 MG TAB PO SCH (15:11)
--- NOTE | 2022-03-19 15:41 | History & Physical Bridge Note ---
Date of Service March 19, 2022 History & Physical Bridge Note I have examined the patient, reviewed the History & Physical and in the interval since the performance of the History & Physical I have noted the following changes of clinical significance: no changes noted Doing well today. Down to 2L of O2 vs. RA at times. New CT read has only pneumonia, but does not mention lung mass. Will ask pulmonary to weigh in. 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 She declines additional medication at this time.
--- NOTE | 2022-03-19 16:31 | Pulmonary Consultation ---
Date of Consultation March 19, 2022 Assessment & Plan (1) Pleural effusion: (2) Abnormal chest CT: (3) COPD (chronic obstructive pulmonary disease): (4) Right lower lobe lung mass: CT chest 03/08/2022 personally reviewed: Centrilobular emphysema appreciated bilaterally Right apical pleural scarring Right lower lobe pleural effusion with septation, mass cannot be ruled out Mediastinal lymphadenopathy I personally discussed the CT chest finding with Dr. Vinnie Mondragon radiologist This is new compared to CT chest which was done in 2008 --Right lower lobe atelectasis versus consolidative process with pleural effusion Patient did have cough but denies any pleuritic chest pain Patient has systolic CHF, chronic right-sided pleural effusion can give septation and similar presentation Malignancy cannot be ruled out especially in somebody who is a heavy smoker Covid 19 PCR negative Influenza A/B negative --COPD with emphysema Not on any inhalers at home PFT as an outpatient Consideration of Incruse prior to discharge -- Current smoker [id number]-lvao smoking history Advised to quit Plan: I will do a bedside ultrasound to see how much fluid the patient has Hold anticoagulation for possible thoracentesis versus chest tube tomorrow Risk and benefit of the procedure explained to the patient in depth. Patient is going to discuss this with her family and let us know Patient will need heparin to be held for at least 5-6 hours prior to procedure Case was discussed with CONG Turner Please note the above document was generated using voice recognition software. It may contain grammatical, syntax or spelling errors.Any formal questions or concerns about the content, text or information contained within the body of this dictation should be directly addressed to the provider for clarification. History of Present Illness Attending Physician: Abdirashid Estrada MD History of Present Illness 86-year-old female coming to hospital with complaints of productive cough and shortness of breath Past medical history: Systolic CHF, A. fib on Xarelto, last dose was on Saturday, hypothyroidism, glaucoma At the time of examination patient was saturating 91-92% on room air She stated that she is feeling better compared to coming to the hospital Denies any chest pain. Has been coughing since last 2-3 days bringing up clear phlegm. Denies any hemoptysis No dysuria, no diarrhea, no hematuria, no hematochezia. Patient has lost approximately 30 pounds in 1 year which was a combination of dieting but weight loss was more than expected Denied any subjective fever or chills at home. Social history: [id number] smoking history, currently smoking few cigarettes on a daily basis Allergies Allergy/AdvReac Type Severity Reaction Status Date / Time atorvastatin Allergy Unknown LOUIS's Verified 03/19/22 00:45 bupropion Allergy Unknown LOUIS's Verified 03/19/22 00:45 ARTUR Inhibitors AdvReac Unknown Cough Verified 03/19/22 00:45 Home Medications Medication Instructions Recorded Confirmed Type calcium carbonate 600 mg calcium 600 mg PO BID 05/17/19 03/19/22 History (1,500 mg) tablet (Calcium) cholecalciferol (vitamin D3) 25 1,000 unit PO DAILY 05/17/19 03/19/22 History mcg (1,000 unit) capsule (Vitamin D3) furosemide 40 mg tablet 40 mg PO DAILY PRN 05/17/19 03/19/22 History latanoprost 0.005 % eye drops 1 drp OPB HS 05/17/19 03/19/22 History levothyroxine 75 mcg tablet 75 mcg PO DAILY 05/17/19 03/19/22 History rivaroxaban 15 mg tablet (Xarelto) 15 mg PO QPM 05/17/19 03/19/22 History timolol maleate 0.25 % eye drops 1 drp OPHTHALMIC (EYE) QAM 05/17/19 03/19/22 History (Timoptic) metoprolol succinate 50 mg 50 mg PO BID 03/07/21 03/19/22 History tablet,extended release 24 hr ferrous sulfate 325 mg (65 mg 325 mg PO DAILY 02/03/22 03/19/22 History iron) tablet sacubitril 49 mg-valsartan 51 mg 1 tab PO BID 02/03/22 03/19/22 History tablet (Entresto) digoxin 250 mcg (0.25 mg) tablet 250 mcg PO UD 03/19/22 03/19/22 History Patient History Medical History (Updated 03/19/22 @ 16:38 by Marc Price MD) Atrial fibrillation Glaucoma Hypertension Hypothyroidism (acquired) Surgical History History of cardioversion History of ear surgery History of tubal ligation Status post colposcopy Family History (Updated 03/07/20 @ 14:15 by Nel Campbell) Mother Colon cancer Father Hypertension Stroke Other Family history non-contributory No family history of adverse response to anesthesia No family history of bleeding disorder Social History Smoking Status: Current some day smoker Tobacco Type: Cigarettes Cigarettes Per Day: 1-4; Second Hand Exposure: No; Hx Alcohol Use: No Hx Substance Use: No Preferred Language: Mohawk Communication Ability: Effective Legal Practice Manager Required: No Beliefs That Will Affect Care: None marital status: Current Living Situation: Alone current occupational status: retired Feels Safe at Home: Yes Assistive Devices: Cane and Walker Review of Systems Review of Systems: All systems reviewed & are unremarkable except as noted in HPI & below Physical Exam Physical Exam: Constitutional: No acute distress HEENT: EOMI, PERRLA Respiratory system: Decreased air entry bilaterally, no wheeze, no rhonchi, positive crackles bilateral lower lobes CVS: S1-S2 positive, no murmurs or gallops Abdomen: Soft, nontender, nondistended, positive bowel sounds x4 Extremities: +2 pulses bilaterally radialis/ dorsalis pedis, no cyanosis, no edema Neuro: Awake alert oriented x3 Psych: Normal mood and affect G/U: No Patricia Skin: no rashes, warm and dry Lymphatic: no cervical or axillary lymphadenopathy Results & Data Results & Data ([facility]) Vital Signs (Past 12 Hours) Vital Signs Temp Pulse Pulse Resp BP Pulse Ox 03/19/22 15:12 36.6 C 85 16 145/73 H 92 03/19/22 15:11 85 03/19/22 13:36 84 95 03/19/22 10:45 36.6 C 95 H 24 156/92 H 92 03/19/22 08:40 36.7 C 102 H 24 132/97 90 03/19/22 07:12 100 H 18 91 03/19/22 06:05 36.8 C 94 H 26 H 167/112 H 95 Laboratory Results 03/19/22 04:28 03/19/22 05:35 PG Care Time/CCT Total # of Minutes Spent Total Time Spent with Patient: Total time spent is greater than 50% in coordination of care (as documented) at patient's floor/unit and/or counseling patient: Coding Level of Care Code 84557 Initial In Care Lvl 3 Diagnoses Pleural effusion J90 Abnormal chest CT R93.89 COPD (chronic obstructive pulmonary disease) J44.9 Right lower lobe lung mass R91.8
--- NOTE | 2022-03-19 17:30 | Procedure Note ---
Procedure Note Date of Service March 19, 2022 Note Bedside Ultrasound: Lung: Right-sided small pleural effusion with multiple loculations No pleural effusion on the left Heart: Cardiomegaly with reduced EF, no clear pericardial effusion Plan: Given the complex/multi loculated right-sided pleural effusion. I think chest tube with mist protocol would be appropriate for the patient Risk and benefit explained to the patient in depth She is good to talk to the family and let us know Please note the above document was generated using voice recognition software. It may contain grammatical, syntax or spelling errors.Any formal questions or concerns about the content, text or information contained within the body of this dictation should be directly addressed to the provider for clarification. Coding CPT Codes Pulmonary/Thoracic - Pulmonary and Thoracic: 39113 US, Chest, real time with imaging documentation ([id number]) [facility] Procedure Codes (Charges) Pulmonary/Thoracic Procedure 1: Pulmonary and Thoracic: 51819 US, Chest, real time with imaging documentation
[2022-03-19] MEDS: guaiFENesin/DEXTROM SYRUP 200MG/20MG 10ML UDC PO PRN (20:04)
[2022-03-19] MEDS: LATANOPROST 0.005% OP SOLN 2.5 ML BTL OPB SCH (20:07)
[2022-03-20] MEDS: guaiFENesin/DEXTROM SYRUP 200MG/20MG 10ML UDC PO PRN (02:53)
[2022-03-20] MEDS: methylPREDNISolone 40 MG in SYRINGE 0 ML IV SCH (05:41)
[2022-03-20] MEDS: LEVOTHYROXINE SODIUM 75 MCG TABLET PO SCH (05:41)
[2022-03-20 05:55] LABS: Hematocrit (blood only) 37.3 % (37-47); Hemoglobin 12.5 g/dL (12.0-16.0); Immature Granulocytes # (auto) 0.03 K/uL (0.00-0.02); Immature Granulocytes % (auto) 0.2 %; Lymphocytes # (auto) 0.87 K/uL (1.2-3.4); Lymphocytes % (auto) 6.5 %; Mean Corpuscular Hemoglobin 32.4 pg (25-34); Mean Corpuscular Hgb Conc 33.5 g/dL (32-36); Mean Corpuscular Volume 96.6 fL (80-100); Mean Platelet Volume 9.4 fL (7.4-10.4); Monocytes # (auto) 0.33 K/uL (0.11-0.59); Monocytes % (auto) 2.5 %; Neutrophils # (auto) 12.18 K/uL (1.4-6.5); Neutrophils % (auto) 90.8 %; Platelet Count 219 K/uL (130-400); RDW Coefficient of Variation 14.7 % (11.5-14.5); RDW Standard Deviation 52.3 fL (36.4-46.3); Red Blood Count 3.86 M/uL (4.2-5.4); White Blood Count 13.41 K/uL (4.8-10.8)
[2022-03-20 06:18] LABS: Albumin Globulin Ratio 1.5 (0.9-2); Albumin Level 3.5 gm/dl (3.4-5.0); BUN Creatinine Ratio 21.5 (10-20); Bilirubin,Total 0.6 mg/dl (0.2-1.0); Calcium 9.2 mg/dl (8.5-10.1); Creatinine Clr Calc Pharmacy 35.9 ml/min; Est GFR (African American) 64.5 ml/min; Est GFR (Non-African American) 55.6 ml/min; Globulin 2.4 gm/dl (2.5-4.0); Magnesium 1.8 mg/dl (1.7-2.4); Potassium 4.5 mmol/L (3.5-5.1); Total Protein 5.9 gm/dl (6.0-8.3)
[2022-03-20] MEDS: TIMOLOL GFS 0.5% OPH SOLN 74 DROPS/5 ML BTL OP SCH (08:22)
[2022-03-20] MEDS: cefTRIAXone SODIUM 1,000 MG in DEXTROSE 5% 50 ML IV SCH (08:22)
[2022-03-20] MEDS: METOPROLOL SUCC 50MG EXT REL TAB PO SCH ×2 (08:22→20:42)
[2022-03-20] MEDS: VALSARTAN/SACUBITRIL 51/49 MG TAB PO SCH ×2 (08:22→20:45)
[2022-03-20] MEDS: FERROUS SULFATE 325 MG TAB PO SCH (08:22)
[2022-03-20] MEDS: CALCIUM 600MG + VIT D 400 IU TAB PO SCH ×2 (08:22→20:39)
[2022-03-20] MEDS: CHOLECALCIFEROL 1,000 UNITS 25 MCG TAB PO SCH (08:23)
[2022-03-20] MEDS ORDERED: LIDOCAINE 1% LOCAL 20 ML VIAL ONE (08:39)
--- NOTE | 2022-03-20 09:34 | Procedure Note ---
Procedure Note Date of Service March 20, 2022 Note Procedure: Pigtail chest tube insertion Vault Manager: Dr. Marc Price Indication: Right-sided complex pleural effusion Consent: Signed by patient and verified with timeout prior to procedure Anesthesia: 1% lidocaine without epinephrine local Procedure: Consent was verified and timeout performed. Appropriate imaging studies were reviewed prior to the procedure. Patient was placed in a seated position. Appropriate site above the diaphragm on the right midaxillary line fourth intercostal space for chest tube insertion was selected. The skin was prepped and draped in normal sterile fashion. Lidocaine was used for local analgesia. Serosanguineous fluid was aspirated via the finder needle. Bubbling was appreciated even when the fluid was removed with syringe A small skin juan was made with the scalpel and the catheter over the needle apparatus was advanced over the rib into the pleural space. With the help of guidewire and Seldinger technique, 14 Azeri pigtail catheter was inserted and connected to Pleur-evac. Intermittent +1 air leak was appreciated on exhalation Chest x-ray to follow Fluid was sent for labs, culture and cytology. The patient tolerated the procedure without obvious complication Complications: None Blood loss: Less than 1 cc. Coding CPT Codes Pulmonary/Thoracic - Pulmonary and Thoracic: 88304 Tube thoracostomy ([id number]) Pulmonary/Thoracic - Pulmonary and Thoracic: 61737 US, Chest, real time with imaging documentation ([id number]) Pulmonary/Thoracic - Pulmonary and Thoracic: 84793 Lyse chest fibrin initial day ([id number]) [facility] Codes (Charges) Pulmonary/Thoracic Procedure 1: Pulmonary and Thoracic: 46621 Tube thoracostomy Procedure 2: Pulmonary and Thoracic: 57455 US, Chest, real time with imaging documentation Procedure 3: Pulmonary and Thoracic: 16019 Lyse chest fibrin initial day
--- NOTE | 2022-03-20 09:35 | Pulmonology Progress Note ---
Date of Service March 20, 2022 Assessment & Plan (1) Pleural effusion: (2) Abnormal chest CT: (3) COPD (chronic obstructive pulmonary disease): (4) Right lower lobe lung mass: Plan: CT chest 03/08/2022 personally reviewed: Centrilobular emphysema appreciated bilaterally Right apical pleural scarring Right lower lobe pleural effusion with septation, mass cannot be ruled out Mediastinal lymphadenopathy I personally discussed the CT chest finding with Dr. Vinnie Mondragon radiologist This is new compared to CT chest which was done in 2008 -- Right-sided complicated pleural effusion Patient did have cough but denies any pleuritic chest pain Patient has systolic CHF, chronic right-sided pleural effusion can give septation and similar presentation Malignancy cannot be ruled out especially in somebody who is a heavy smoker Covid 19 PCR negative Influenza A/B negative S/p pigtail catheter placement 03/20/2022 Follow-up culture and cytology Mist 2 protocol --COPD with emphysema Not on any inhalers at home PFT as an outpatient Consideration of Incruse prior to discharge -- Current smoker [id number] smoking history Advised to quit Plan: S/p pigtail catheter placement. Will start mist 2 protocol Follow-up cytology and cultures DC Solu-Medrol Start the patient on Incruse Case was discussed with CONG Spicer and Dr. Estrada Please note the above document was generated using voice recognition software. It may contain grammatical, syntax or spelling errors.Any formal questions or concerns about the content, text or information contained within the body of this dictation should be directly addressed to the provider for clarification. Admission and Anticipated Discharge Date Admission Date: March 19, 2022 Subjective Patient seen and examined at bedside. No acute distress, no delusions overnig ht. Patient was saturating 92% on room air She did complain of cough but she is not able to bring any phlegm up. Denies any chest pain No headache, no nausea, no vomiting Fair appetite. Review of Systems Review of Systems: All systems reviewed & are unremarkable except as noted in Subjective Physical Exam Physical Exam: Constitutional: No acute distress HEENT: EOMI, PERRLA Respiratory system: Decreased air entry bilaterally, no wheeze, no rhonchi, positive crackles bilateral lower lobes CVS: S1-S2 positive, no murmurs or gallops Abdomen: Soft, nontender, nondistended, positive bowel sounds x4 Extremities: +2 pulses bilaterally radialis/ dorsalis pedis, no cyanosis, no edema Neuro: Awake alert oriented x3 Psych: Normal mood and affect G/U: No Patricia Skin: no rashes, warm and dry Lymphatic: no cervical or axillary lymphadenopathy Results & Data Results & Data ([facility]) Vital Signs (Past 12 Hours) Vital Signs Temp Pulse Pulse Resp BP Pulse Ox 03/20/22 03:00 36.6 C 88 22 137/74 91 03/20/22 00:00 80 03/19/22 23:00 36.8 C 89 22 131/54 L 93 Laboratory Results 03/20/22 05:26 03/20/22 05:26 PG Care Time/CCT Total # of Minutes Spent Total Time Spent with Patient: Total time spent is greater than 50% in coordination of care (as documented) at patient's floor/unit and/or counseling patient: Coding Level of Care Code 78511 Subseq Hosp Care Lvl 3 Diagnoses Pleural effusion J90 Abnormal chest CT R93.89 COPD (chronic obstructive pulmonary disease) J44.9 Right lower lobe lung mass R91.8
--- NOTE | 2022-03-20 09:42 | XRay Report ---
XR chest 1V portable CLINICAL HISTORY: Right side chest tube. Evaluate for pneumothorax COMPARISON STUDY: 03/18/2022 TECHNIQUE: 1 view of the chest FINDINGS: Single frontal view of the chest demonstrates the heart size to again be enlarged. Right-sided chest pigtail catheter has been placed with no evidence for pneumothorax. There is decrease right pleural e ffusion. The lungs are clear of alveolar opacities. There is no evidence for left pleural effusion. T here is no evidence for vascular congestion. There is no acute osseous pathology. IMPRESSION: 1. Status post right-sided chest pigtail catheter with decrease right pleural effusion. 2. No evidence for pneumothorax. ACT 112: Negative or not required by law. Electronically signed by: Flaco Man M.D. 03/20/2022 9:40 AM
[2022-03-20 10:20] LABS: Amylase Pleural Fluid 14 U/L; Glucose Pleural Fluid 180 mg/dl; LDH Pleural Fluid 125 U/L; Total Protein Pleural Fluid < 3.0 gm/dl
[2022-03-20 10:41] LABS: Albumin Level 3.9 gm/dl (3.4-5.0); Bilirubin,Total 0.5 mg/dl (0.2-1.0); Total Protein 6.6 gm/dl (6.0-8.3)
[2022-03-20 10:43] LABS: Appearance Pleural Fluid HAZY; Basophils, Fluid 0 %; Color Pleural Fluid AMBER; Eosinophils, Fluid 0 %; Lymphocytes, Fluid 27 %; Mono,Macrophage,Mesothelial 7 %; Neutrophils, Fluid 66 %; RBC Pleural Fluid (A) 23000 /uL; Source Pleural Fluid RIGHT LUNG; WBC Pleural Fluid (A) 294 /uL
[2022-03-20] MEDS: ALTEPLASE, RECOMBINANT 10 MG in SYRINGE 50 ML IPL SCH ×2 (10:54→21:56)
[2022-03-20] MEDS: DORNASE ALFA 5 ML in SYRINGE 25 ML IPL SCH ×2 (11:49→23:06)
[2022-03-20] MEDS: UMECLIDINIUM BROMIDE 62.5MCG/BLISTER 7 PUFFS/INHALER INH SCH (11:49)
[2022-03-20] MEDS: AZITHROMYCIN 500 MG in DEXTROSE 5% 250 ML IV SCH (11:50)
[2022-03-20 13:32] LABS: A calco-baum cmplx NotReported Not Detected (NotDetected); Bact fragilis Not Reported Not Detected (NotDetected); C auris Not Reported Not Detected (NotDetected); Calbicans Not Reported Not Detected (NotDetected); Candida glabrata Not Reported Not Detected (NotDetected); Candida krusei Not Reported Not Detected (NotDetected); Cneoformans/gatti Not Reported Not Detected (NotDetected); Cparapsilosis Not Reported Not Detected (NotDetected); Ctropicalis Not Reported Not Detected (NotDetected); E cloacae compx Not Reported Not Detected (NotDetected); Efaecalis Not Reported Not Detected (NotDetected); Efaecium Not Reported Not Detected (NotDetected); Enterobacterales Not Reported Not Detected (NotDetected); Escherichia coli Not Reported Not Detected (NotDetected); H influenzae Not Reported Not Detected (NotDetected); K aerogenes Not Reported Not Detected (NotDetected); Koxytoca Not Reported Not Detected (NotDetected); Kpneumoniae grp Not Reported Not Detected (NotDetected); Lmonocyt Not Reported Not Detected (NotDetected); N meningitidis Not Reported Not Detected (NotDetected); P aeruginosa Not Reported Not Detected (NotDetected); Proteus spp Not Reported Not Detected (NotDetected); Salmonella spp Not Reported Not Detected (NotDetected); Smarcescens Not Reported Not Detected (NotDetected); Staph lugdunensis Not Reported Not Detected (NotDetected); Staph spp. Not Reported DETECTED (NotDetected); Staphaureus Not Reported Not Detected (NotDetected); Staphepi Not Reported Not Detected (NotDetected); Stenmaltophilia Not Reported Not Detected (NotDetected); Strep agal(GrpB) Not Reported Not Detected (NotDetected); Strep pneum Not Reported Not Detected (NotDetected); Strep pyog (GrpA) Not Reported Not Detected (NotDetected); Strep spp Not Reported Not Detected (NotDetected)
[2022-03-20 14:16] LABS: Staphylococcus spp. DETECTED (NotDetected)
--- NOTE | 2022-03-20 14:18 | Hospitalist Progress Note ---
Date of Service March 20, 2022 Assessment & Plan (1) Pneumonia of right lower lobe due to infectious organism: Plan: Right lower lobe pneumonia with loculated pleural effusion. Possible RLL neoplasm, but considered less likely per pulm. COVID-19, RSV and influenza testing all negative. - Continue ceftriaxone & azithromycin - Duonebs PRN - Robitussin-DM 10 mils p.o. every 6 hours as needed cough - Pulmonary consulted - Undergoing MIST2 protocol at this time. (2) Elevated troponin I level: Plan: Highly sensitive troponin 15.8, then down. Demand ischemia. No indication of active cardiac issue. (3) Atrial fibrillation: Plan: Permanent. - Continue digoxin, beta-harley - Hold anticoagulation while with chest tube (4) Hypoxia: Plan: Due to pneumonia. Improved with nasal cannula oxygen. (5) Hypertension: Plan: BP is 115/60. - Continue digoxin, metoprolol succinate, Entresto. (6) Hypothyroidism (acquired): Plan: Last TSH in 2017. - Continue levothyroxine 75 mcg - Repeat TSH (7) Glaucoma: Plan: - Continue timolol and latanoprost eyedrops Admission and Anticipated Discharge Date Admission Date: March 19, 2022 Subjective Doing some better today. Still with quite a bit of coughing. Reports no fevers/chills, chest pain, shortness of breath, abdominal pain, nausea, or vomiting. Physical Exam Constitutional: WD/WN, vitals as above Eyes: EOM intact bilaterally; no conjunctival abnormality ENMT: external ear and nose normal, oropharynx normal Neck: trachea midline, no thyromegaly normal visual inspection Respiratory: normal respiratory effort, lungs clear to auscultation + cough; no respiratory distress Cardiovascular: RRR, no murmur, no edema Gastrointestinal (Abdomen): Inspection/Auscultation: abdomen normal to inspection; abdomen not distended Musculoskeletal: no cyanosis or clubbing, extremities motor strength 5/5 Skin: no rashes, warm and dry Neurologic: moves all extremities and awake Psychiatric: Orientation: alert, oriented to person and cooperative Results & Data Results & Data ([facility]) Vital Signs (Past 12 Hours) Vital Signs Temp Pulse Pulse Resp BP BP Pulse Ox 03/20/22 12:45 100 H 22 115/57 L 91 03/20/22 12:32 104 H 25 H 115/57 L 91 03/20/22 12:00 104 H 22 90 03/20/22 11:39 94 H 03/20/22 11:00 106 H 30 H 90 03/20/22 10:00 94 H 16 03/20/22 09:00 102 H 22 03/20/22 08:25 97 H 20 143/77 H 03/20/22 08:00 89 24 03/20/22 07:00 96 H 20 03/20/22 06:45 77 23 03/20/22 03:00 36.6 C 88 22 137/74 91 PG Care Time/CCT Total # of Minutes Spent Total Time Spent with Patient: Total time spent is greater than 50% in coordination of care (as documented) at patient's floor/unit and/or counseling patient: Coding Level of Care Code 64100 Subseq Hosp Care Lvl 3 Diagnoses Pneumonia of right lower lobe due to infectious organism J18.9 Elevated troponin I level R77.8 Hypoxia R09.02 Hypertension I10 Atrial fibrillation I48.91 Hypothyroidism (acquired) E03.9 Glaucoma H40.9
[2022-03-20] MEDS: guaiFENesin/DEXTROM SYRUP 200MG/20MG 10ML UDC PO SCH ×2 (15:11→21:58)
[2022-03-20] MEDS: DIGOXIN 0.125 MG TAB PO SCH (15:11)
[2022-03-20] MEDS ORDERED: DIGOXIN 0.25 MG TAB PO SCH (16:00)
--- NOTE | 2022-03-20 19:07 | Electrocardiogram Report ---
Test Reason : Blood Pressure : / mmHG Vent. Rate : 077 BPM Atrial Rate : 064 BPM P-R Int : 000 ms QRS Dur : 164 ms QT Int : 362 ms P-R-T Axes : 000 074 -16 degrees QTc Int : 409 ms Poor data quality, interpretation may be adversely affected Atrial fibrillation with premature ventricular or aberrantly conducted complexes Abnormal ECG When compared with ECG of 18-MAR-2022 21:56, QRS duration has increased Nonspecific T wave abnormality, worse in Anterior leads Confirmed by Gómez Reinoso ([id number]) on 03/20/2022 7:07:26 PM Referred By: REFERRED SELF Confirmed By:Alcides Reinoso
[2022-03-20] MEDS: LATANOPROST 0.005% OP SOLN 2.5 ML BTL OPB SCH (20:40)
[2022-03-21] MEDS: guaiFENesin/DEXTROM SYRUP 200MG/20MG 10ML UDC PO SCH ×3 (04:26→22:25)
[2022-03-21] MEDS: LEVOTHYROXINE SODIUM 75 MCG TABLET PO SCH (04:27)
[2022-03-21 05:21] LABS: Basophils # (auto) 0.01 K/uL (0-0.2); Basophils % (auto) 0.1 %; Hematocrit (blood only) 39.5 % (37-47); Hemoglobin 13.1 g/dL (12.0-16.0); Immature Granulocytes # (auto) 0.07 K/uL (0.00-0.02); Immature Granulocytes % (auto) 0.4 %; Lymphocytes # (auto) 1.64 K/uL (1.2-3.4); Lymphocytes % (auto) 9.5 %; Mean Corpuscular Hgb Conc 33.2 g/dL (32-36); Mean Corpuscular Volume 96.6 fL (80-100); Mean Platelet Volume 9.3 fL (7.4-10.4); Monocytes # (auto) 1.63 K/uL (0.11-0.59); Monocytes % (auto) 9.4 %; Neutrophils # (auto) 13.99 K/uL (1.4-6.5); Neutrophils % (auto) 80.6 %; Platelet Count 249 K/uL (130-400); RDW Coefficient of Variation 14.9 % (11.5-14.5); RDW Standard Deviation 52.4 fL (36.4-46.3); Red Blood Count 4.09 M/uL (4.2-5.4); White Blood Count 17.34 K/uL (4.8-10.8)
[2022-03-21 05:57] LABS: Albumin Globulin Ratio 1.5 (0.9-2); Albumin Level 3.4 gm/dl (3.4-5.0); BUN Creatinine Ratio 24.7 (10-20); Bilirubin,Total 0.6 mg/dl (0.2-1.0); Calcium 9.2 mg/dl (8.5-10.1); Creatinine Clr Calc Pharmacy 35.9 ml/min; Est GFR (African American) 64.5 ml/min; Est GFR (Non-African American) 55.6 ml/min; Globulin 2.3 gm/dl (2.5-4.0); Magnesium 1.8 mg/dl (1.7-2.4); Potassium 4.1 mmol/L (3.5-5.1); Total Protein 5.7 gm/dl (6.0-8.3)
--- NOTE | 2022-03-21 07:53 | XRay Report ---
XR chest 1V portable CLINICAL HISTORY: Follow-up right-sided chest tube placement for pleural effusion. COMPARISON STUDY: 03/20/2022 TECHNIQUE: 1 view of the chest FINDINGS: Single frontal view of the chest demonstrates the heart size to again be enlarged. Pigtail catheter i s again seen at the right lung base posteriorly with no gross pleural effusion seen on the right. However, there is evidence for development of left pleural effusion with left lower lobe atelectasis/ collapse. PA and lateral radiographs would be helpful for further evaluation. The lungs are otherwise clear of acute alveolar opacities. There is no evidence for vascular congestion. There is no acute o sseous pathology. IMPRESSION: 1. Stable right-sided pigtail catheter with no definite recurrent right pleural effusion or pneumotho rax. 2. However, there is evidence for new left pleural effusion and left basilar atelectasis. Follow-up P A and lateral radiographs would be helpful for further evaluation. ACT 112: Negative or not required by law. Electronically signed by: Flaco Man M.D. 03/21/2022 7:52 AM
--- NOTE | 2022-03-21 08:19 | Pulmonology Progress Note ---
Date of Service March 21, 2022 Assessment & Plan (1) Pleural effusion: (2) Abnormal chest CT: (3) COPD (chronic obstructive pulmonary disease): (4) Right lower lobe lung mass: Plan: CT chest 03/08/2022 personally reviewed: Centrilobular emphysema appreciated bilaterally Right apical pleural scarring Right lower lobe pleural effusion with septation, mass cannot be ruled out Mediastinal lymphadenopathy This is new compared to CT chest which was done in 2008 -- Right-sided complicated pleural effusion Patient did have cough but denies any pleuritic chest pain Patient has systolic CHF, chronic right-sided pleural effusion can give septation and similar presentation Malignancy cannot be ruled out especially in somebody who is a heavy smoker Covid 19 PCR negative Influenza A/B negative S/p pigtail catheter placement 03/20/2022 Follow-up culture and cytology Mist 2 protocol --COPD with emphysema Not on any inhalers at home PFT as an outpatient Consideration of Incruse prior to discharge -- Current smoker [id number] smoking history Advised to quit Plan: Chest x-ray from today shows mediastinal shift to the left with possible left lower lobe atelectasis Patient is already on guaifenesin, add flutter valve and incentive spirometry. If there is no improvement will consider chest PT Repeat chest x-ray in the morning Continue with mist 2 protocol Case was discussed with CONG [place] and Dr. Estrada Please note the above document was generated using voice recognition software. It may contain grammatical, syntax or spelling errors.Any formal questions or concerns about the content, text or information contained within the body of this dictation should be directly addressed to the provider for clarification. Admission and Anticipated Discharge Date Admission Date: March 19, 2022 Subjective Patient seen and examined at bedside. No acute distress, notable symptoms overnight Saturating 90-91% on room air Does complain of mild chest discomfort at the site of the chest tube. No headache, no nausea or vomiting Has been complaining of cough but not bringing up any phlegm. Review of Systems Review of Systems: All systems reviewed & are unremarkable except as noted in Subjective Physical Exam Physical Exam: Constitutional: No acute distress HEENT: EOMI, PERRLA Respiratory system: Decreased air entry bilaterally, no wheeze, no rhonchi, positive crackles bilateral lower lobes CVS: S1-S2 positive, no murmurs or gallops Abdomen: Soft, nontender, nondistended, positive bowel sounds x4 Extremities: +2 pulses bilaterally radialis/ dorsalis pedis, no cyanosis, no edema Neuro: Awake alert oriented x3 Psych: Normal mood and affect G/U: No Patricia Skin: no rashes, warm and dry Lymphatic: no cervical or axillary lymphadenopathy Results & Data Results & Data ([facility]) Vital Signs (Past 12 Hours) Vital Signs Temp Pulse Resp BP Pulse Ox 03/21/22 05:50 78 22 03/21/22 05:00 78 22 03/21/22 04:30 86 17 03/21/22 04:21 36.8 C 91 H 26 H 141/83 H 91 03/21/22 04:10 101 H 18 03/21/22 04:00 103 H 18 03/21/22 00:00 96 H 03/20/22 23:05 36.7 C 84 12 168/90 H 93 03/20/22 22:50 67 27 H 03/20/22 22:40 88 14 03/20/22 22:30 96 H 22 03/20/22 22:20 87 29 H 03/20/22 22:14 77 23 Laboratory Results 03/21/22 05:03 03/21/22 05:03 PG Care Time/CCT Total # of Minutes Spent Total Time Spent with Patient: Total time spent is greater than 50% in coordination of care (as documented) at patient's floor/unit and/or counseling patient: Coding Level of Care Code 82701 Subseq Hosp Care Lvl 2 Diagnoses Pleural effusion J90 Abnormal chest CT R93.89 COPD (chronic obstructive pulmonary disease) J44.9 Right lower lobe lung mass R91.8
[2022-03-21] MEDS: FERROUS SULFATE 325 MG TAB PO SCH (08:37)
[2022-03-21] MEDS: VALSARTAN/SACUBITRIL 51/49 MG TAB PO SCH ×2 (08:37→21:10)
[2022-03-21] MEDS: METOPROLOL SUCC 50MG EXT REL TAB PO SCH ×2 (08:37→21:09)
[2022-03-21] MEDS: CHOLECALCIFEROL 1,000 UNITS 25 MCG TAB PO SCH (08:37)
[2022-03-21] MEDS: TIMOLOL GFS 0.5% OPH SOLN 74 DROPS/5 ML BTL OP SCH (08:37)
[2022-03-21] MEDS: UMECLIDINIUM BROMIDE 62.5MCG/BLISTER 7 PUFFS/INHALER INH SCH (08:38)
[2022-03-21] MEDS: cefTRIAXone SODIUM 1,000 MG in DEXTROSE 5% 50 ML IV SCH (08:41)
--- NOTE | 2022-03-21 10:46 | Hospitalist Progress Note ---
Date of Service March 21, 2022 Assessment & Plan (1) Pneumonia of right lower lobe due to infectious organism: Plan: Right lower lobe pneumonia with loculated pleural effusion. Possible RLL neoplasm, but considered less likely per pulm. COVID-19, RSV and influenza testing all negative. - Continue ceftriaxone & azithromycin - Duonebs PRN - Robitussin-DM 10 mils p.o. every 6 hours as needed cough - Pulmonary consulted - Undergoing MIST2 protocol at this time. - Added MRSA nares swab. Reached out to pulm re: thoughts on transudative vs. exudative effusion. Path pending. (2) Elevated troponin I level: Plan: Highly sensitive troponin 15.8, then down. Demand ischemia. No indication of active cardiac issue. (3) Atrial fibrillation: Plan: Permanent. - Continue digoxin, beta-harley - Hold anticoagulation while with chest tube (4) Hypoxia: Plan: Due to pneumonia. Improved with nasal cannula oxygen. (5) Hypertension: Plan: BP is 140/80. - Continue digoxin, metoprolol succinate, Entresto. (6) Hypothyroidism (acquired): Plan: Last TSH in 2017. - Continue levothyroxine 75 mcg - Repeat TSH (7) Glaucoma: Plan: - Continue timolol and latanoprost eyedrops Admission and Anticipated Discharge Date Admission Date: March 19, 2022 Subjective Doing well. Instillation of MIST protocol is causing some burning. Otherwise, doing well and no pain apart from that. Reports no fevers/chills, chest pain, shortness of breath, abdominal pain, nausea, or vomiting. Physical Exam Constitutional: WD/WN, vitals as above Eyes: EOM intact bilaterally; no conjunctival abnormality ENMT: external ear and nose normal, oropharynx normal Neck: trachea midline, no thyromegaly normal visual inspection Respiratory: normal respiratory effort, lungs clear to auscultation + cough; no respiratory distress Right chest tube with some drainage Cardiovascular: RRR, no murmur, no edema Gastrointestinal (Abdomen): Inspection/Auscultation: abdomen normal to inspection; abdomen not distended Musculoskeletal: no cyanosis or clubbing, extremities motor strength 5/5 Skin: no rashes, warm and dry Neurologic: moves all extremities and awake Psychiatric: Orientation: alert, oriented to person and cooperative Results & Data Results & Data ([facility]) Vital Signs (Past 12 Hours) Vital Signs Temp Pulse Resp BP Pulse Ox 03/21/22 05:50 78 22 03/21/22 05:00 78 22 03/21/22 04:30 86 17 03/21/22 04:21 36.8 C 91 H 26 H 141/83 H 91 03/21/22 04:10 101 H 18 03/21/22 04:00 103 H 18 03/21/22 00:00 96 H 03/20/22 23:05 36.7 C 84 12 168/90 H 93 03/20/22 22:50 67 27 H 03/20/22 22:40 88 14 PG Care Time/CCT Total # of Minutes Spent Total Time Spent with Patient: Total time spent is greater than 50% in coordination of care (as documented) at patient's floor/unit and/or counseling patient: Coding Level of Care Code 35453 Subseq Hosp Care Lvl 3 Diagnoses Pneumonia of right lower lobe due to infectious organism J18.9 Elevated troponin I level R77.8 Atrial fibrillation I48.91 Hypoxia R09.02 Hypertension I10 Hypothyroidism (acquired) E03.9 Glaucoma H40.9
[2022-03-21] MEDS: CALCIUM 600MG + VIT D 400 IU TAB PO SCH ×2 (10:52→21:08)
[2022-03-21] MEDS: AZITHROMYCIN 500 MG in DEXTROSE 5% 250 ML IV SCH (10:52)
[2022-03-21] MEDS: ALTEPLASE, RECOMBINANT 10 MG in SYRINGE 50 ML IPL SCH ×2 (11:49→22:56)
--- NOTE | 2022-03-21 11:55 | Electrocardiogram Report ---
Test Reason : Blood Pressure : / mmHG Vent. Rate : 095 BPM Atrial Rate : 258 BPM P-R Int : 000 ms QRS Dur : 086 ms QT Int : 318 ms P-R-T Axes : 000 070 -36 degrees QTc Int : 399 ms Atrial fibrillation Nonspecific ST abnormality Abnormal ECG When compared with ECG of 20-MAR-2022 05:35, QRS duration has decreased Nonspecific T wave abnormality no longer evident in Anterolateral leads Confirmed by Gómez Reinoso ([id number]) on 03/21/2022 11:55:37 AM Referred By: REFERRED SELF Confirmed By:Alcides Reinoso
[2022-03-21] MEDS: DORNASE ALFA 5 ML in SYRINGE 25 ML IPL SCH (13:00)
--- NOTE | 2022-03-21 15:41 | XRay Report ---
XR chest 1V portable CLINICAL HISTORY: Confirm chest tube position. TECHNIQUE: Single frontal radiograph of the chest was obtained. Comparison: Comparison is made to chest radiograph 03/19/2022 FINDINGS: A right chest tube terminates in the right thorax. Cardiomegaly is noted. Prominence and cephalizatio n of the vasculature is seen. There is a trace right pleural effusion. There is likely a trace right apical pneumothorax measuring approximately 6 mm. IMPRESSION: Satisfactory placement of right chest tube. There is a trace right pleural effusion and likely trace apical pneumothorax. ACT 112: Negative or not required by law. Electronically signed by: Cristiano Acosta M.D. 03/21/2022 3:38 PM
[2022-03-21] MEDS: DIGOXIN 0.25 MG TAB PO SCH (18:35)
[2022-03-21] MEDS: LATANOPROST 0.005% OP SOLN 2.5 ML BTL OPB SCH (21:08)
[2022-03-22] MEDS: DORNASE ALFA 5 ML in SYRINGE 25 ML IPL SCH ×3 (00:01→22:00)
[2022-03-22] MEDS: guaiFENesin/DEXTROM SYRUP 200MG/20MG 10ML UDC PO SCH ×3 (05:56→22:00)
[2022-03-22] MEDS: LEVOTHYROXINE SODIUM 75 MCG TABLET PO SCH (05:56)
[2022-03-22 06:35] LABS: Hematocrit (blood only) 40.9 % (37-47); Hemoglobin 13.2 g/dL (12.0-16.0); Mean Corpuscular Hemoglobin 30.7 pg (25-34); Mean Corpuscular Hgb Conc 32.3 g/dL (32-36); Mean Corpuscular Volume 95.1 fL (80-100); Mean Platelet Volume 9.3 fL (7.4-10.4); Platelet Count 231 K/uL (130-400); RDW Coefficient of Variation 15.2 % (11.5-14.5); RDW Standard Deviation 52.8 fL (36.4-46.3); White Blood Count 9.28 K/uL (4.8-10.8)
[2022-03-22 06:53] LABS: BUN Creatinine Ratio 21.7 (10-20); Calcium 8.6 mg/dl (8.5-10.1); Creatinine Clr Calc Pharmacy 36.3 ml/min; Est GFR (African American) 65.3 ml/min; Est GFR (Non-African American) 56.4 ml/min; Magnesium 1.6 mg/dl (1.7-2.4); Potassium 4.1 mmol/L (3.5-5.1)
--- NOTE | 2022-03-22 08:06 | XRay Report ---
SINGLE VIEW CHEST CLINICAL HISTORY: Chest tube FINDINGS: An AP, portable, upright chest radiograph is compared to study dated 03/21/2022. Correlation is made with chest CT dated 03/18/2022. The heart is enlarged noting atherosclerotic calcification of the thoracic aorta. The pulmonary vasculature is noncongested. Emphysema and chronic interstitial th ickening is similar to previous. There is likely trace residual right apical pneumothorax. A pigtail catheter is again seen at the right lung base. There is a small residual right pleural effusion with right basilar opacities. Scarring/atelectasis is again seen at the left lung base. The skeletal struc tures are osteopenic. The bony thorax is grossly intact. IMPRESSION: 1. Cardiomegaly and emphysema. 2. A pigtail catheter is again seen at the right lung base and there is likely trace residual right a pical pneumothorax. 3. Small residual right pleural effusion with right basilar opacities. 4. Opacities at the left lung base likely represent scarring/atelectasis. ACT 112: Negative or not required by law. Electronically signed by: Vinnie Mondragon M.D. 03/22/2022 8:05 AM
[2022-03-22] MEDS: FERROUS SULFATE 325 MG TAB PO SCH (08:16)
[2022-03-22] MEDS: METOPROLOL SUCC 50MG EXT REL TAB PO SCH ×2 (08:16→20:25)
[2022-03-22] MEDS: VALSARTAN/SACUBITRIL 51/49 MG TAB PO SCH ×2 (08:16→20:25)
[2022-03-22] MEDS: UMECLIDINIUM BROMIDE 62.5MCG/BLISTER 7 PUFFS/INHALER INH SCH (08:17)
[2022-03-22] MEDS: CALCIUM 600MG + VIT D 400 IU TAB PO SCH ×2 (08:17→20:25)
[2022-03-22] MEDS: CHOLECALCIFEROL 1,000 UNITS 25 MCG TAB PO SCH (08:17)
[2022-03-22] MEDS: TIMOLOL GFS 0.5% OPH SOLN 74 DROPS/5 ML BTL OP SCH (08:17)
[2022-03-22] MEDS: cefTRIAXone SODIUM 1,000 MG in DEXTROSE 5% 50 ML IV SCH (08:20)
[2022-03-22] MEDS: MAGNESIUM SULFATE / D5W 1 GM/100 ML BAG IV SCH ×3 (09:47→12:23)
[2022-03-22] MEDS: ALTEPLASE, RECOMBINANT 10 MG in SYRINGE 50 ML IPL SCH ×2 (10:51→22:00)
[2022-03-22] MEDS: AZITHROMYCIN 500 MG in DEXTROSE 5% 250 ML IV SCH (12:22)
--- NOTE | 2022-03-22 12:22 | Pulmonology Progress Note ---
Date of Service March 22, 2022 Assessment & Plan (1) Pleural effusion: (2) Abnormal chest CT: (3) COPD (chronic obstructive pulmonary disease): (4) Right lower lobe lung mass: Plan: CT chest 03/08/2022 personally reviewed: Centrilobular emphysema appreciated bilaterally Right apical pleural scarring Right lower lobe pleural effusion with septation, mass cannot be ruled out Mediastinal lymphadenopathy This is new compared to CT chest which was done in 2008 -- Right-sided complicated pleural effusion Patient did have cough but denies any pleuritic chest pain Patient has systolic CHF, chronic right-sided pleural effusion can give septation and similar presentation Malignancy cannot be ruled out especially in somebody who is a heavy smoker Covid 19 PCR negative Influenza A/B negative S/p pigtail catheter placement 03/20/2022 Cytology negative for malignancy Cultures negative to date Mist 2 protocol --COPD with emphysema Not on any inhalers at home PFT as an outpatient Consideration of Incruse prior to discharge -- Current smoker [id number] smoking history Advised to quit Plan: Chest x-ray done today shows improvement in the left lower lobe opacity. Chest tube is in place. I will again cytology from the pleural fluid today Patient still complains of cough unable to bring up the phlegm. Unguinal add hypertonic saline to it. Incentive spirometry and flutter valve to be continued. After the mist 2 protocol is done I will repeat the CT chest with contrast Case was discussed with CONG Glass and Dr. Estrada Please note the above document was generated using voice recognition software. It may contain grammatical, syntax or spelling errors.Any formal questions or concerns about the content, text or information contained within the body of this dictation should be directly addressed to the provider for clarification. Admission and Anticipated Discharge Date Admission Date: March 19, 2022 Subjective Patient seen and examined at bedside. No acute distress, no delusions overnight There was some leakage around the chest tube site yesterday which has decreased in amount Does complain of mild chest discomfort at the site of the chest tube. Denies any significant chest pain. No headache, no nausea vomiting Fair appetite. Does complain of cough but still not bringing up any phlegm. Has been using flutter valve Review of Systems Review of Systems: All systems reviewed & are unremarkable except as noted in Subjective Physical Exam Physical Exam: Constitutional: No acute distress HEENT: EOMI, PERRLA Respiratory system: Decreased air entry bilaterally, no wheeze, no rhonchi, positive crackles bilateral lower lobes CVS: S1-S2 positive, no murmurs or gallops Abdomen: Soft, nontender, nondistended, positive bowel sounds x4 Extremities: +2 pulses bilaterally radialis/ dorsalis pedis, no cyanosis, no edema Neuro: Awake alert oriented x3 Psych: Normal mood and affect G/U: No Patricia Skin: no rashes, warm and dry Lymphatic: no cervical or axillary lymphadenopathy Results & Data Results & Data ([facility]) Vital Signs (Past 12 Hours) Vital Signs Temp Pulse Resp BP Pulse Ox 03/22/22 08:08 36.6 C 81 17 118/71 96 03/22/22 03:20 36.9 C 80 12 130/70 90 Laboratory Results 03/22/22 06:09 03/22/22 06:09 PG Care Time/CCT Total # of Minutes Spent Total Time Spent with Patient: Total time spent is greater than 50% in coordination of care (as documented) at patient's floor/unit and/or counseling patient: Coding Level of Care Code 72295 Subseq Hosp Care Lvl 2 Diagnoses Pleural effusion J90 Abnormal chest CT R93.89 COPD (chronic obstructive pulmonary disease) J44.9 Right lower lobe lung mass R91.8
--- NOTE | 2022-03-22 13:11 | Hospitalist Progress Note ---
Date of Service March 22, 2022 Assessment & Plan (1) Pneumonia of right lower lobe due to infectious organism: Plan: Right lower lobe pneumonia with loculated pleural effusion. Possible RLL neoplasm, but considered less likely per pulm. COVID-19, RSV and influenza testing all negative. - Finished azithromycin on 03/21 - Duonebs PRN - Robitussin-DM 10 mils p.o. every 6 hours as needed cough - Added MRSA nares swab on 03/21 for increased leukocytosis - negative - Cytology from 03/20 - negative - Pulmonary consulted - Undergoing MIST2 protocol at this time. - Continue ceftriaxone (2) Elevated troponin I level: Plan: Highly sensitive troponin 15.8, then down. Demand ischemia. No indication of active cardiac issue. (3) Atrial fibrillation: Plan: Permanent. - Continue digoxin, beta-harley - Hold anticoagulation while with chest tube (4) Hypoxia: Plan: Due to pneumonia. Improved with nasal cannula oxygen. - Resolved; now on room air. (5) Hypertension: Plan: BP is 100/80. - Continue digoxin, metoprolol succinate, Entresto. (6) Hypothyroidism (acquired): Plan: Last TSH in 2017. - Continue levothyroxine 75 mcg - Repeat TSH in AM (7) Glaucoma: Plan: - Continue timolol and latanoprost eyedrops Admission and Anticipated Discharge Date Admission Date: March 19, 2022 Subjective Doing well today. Cough is still bothering her. She is having less pain from the MIST protocol which is good. Reports no fevers/chills, chest pain, shortness of breath, abdominal pain, nausea, or vomiting. Physical Exam Constitutional: WD/WN, vitals as above Eyes: EOM intact bilaterally; no conjunctival abnormality ENMT: external ear and nose normal, oropharynx normal Neck: trachea midline, no thyromegaly normal visual inspection Respiratory: normal respiratory effort, lungs clear to auscultation + cough; no respiratory distress Cardiovascular: RRR, no murmur, no edema Gastrointestinal (Abdomen): Inspection/Auscultation: abdomen normal to inspection; abdomen not distended Musculoskeletal: no cyanosis or clubbing, extremities motor strength 5/5 Skin: no rashes, warm and dry Neurologic: moves all extremities and awake Psychiatric: Orientation: alert, oriented to person and cooperative Results & Data Results & Data ([facility]) Vital Signs (Past 12 Hours) Vital Signs Temp Pulse Resp BP Pulse Ox 03/22/22 12:28 36.8 C 76 19 102/66 97 03/22/22 08:08 36.6 C 81 17 118/71 96 03/22/22 03:20 36.9 C 80 12 130/70 90 PG Care Time/CCT Total # of Minutes Spent Total Time Spent with Patient: Total time spent is greater than 50% in coordination of care (as documented) at patient's floor/unit and/or counseling patient: Coding Level of Care Code 87931 Subseq Hosp Care Lvl 2 Diagnoses Pneumonia of right lower lobe due to infectious organism J18.9 Elevated troponin I level R77.8 Atrial fibrillation I48.91 Hypoxia R09.02 Hypertension I10 Hypothyroidism (acquired) E03.9 Glaucoma H40.9
--- NOTE | 2022-03-22 14:14 | XRay Report ---
XR chest 1V portable CLINICAL HISTORY: Check position of right chest tube COMPARISON STUDY: Chest CT March 18, 2022. Chest radiograph March 22, 2022. FINDINGS: Right basilar pleural catheter is in place with apparent interval repositioning. The mass-l esvin opacity within the right lower hemithorax is better depicted on prior chest CT. Cardiomegaly is n oted. There is a possible trace right apical pneumothorax, unchanged. Pulmonary vascular congestion i s unchanged. IMPRESSION: Right basilar pleural catheter in place with apparent interval repositioning. No change in a suspected trace right apical pneumothorax and trace right pleural effusion. ACT 112: Negative or not required by law. Electronically signed by: Danie Garcai M.D. 03/22/2022 2:12 PM
[2022-03-22] MEDS: DIGOXIN 0.125 MG TAB PO SCH (16:21)
[2022-03-22] MEDS: SODIUM CHLOR 7% 4 ML NEB NEB SCH (19:27)
[2022-03-22] MEDS: LATANOPROST 0.005% OP SOLN 2.5 ML BTL OPB SCH (20:26)
[2022-03-23] MEDS: LEVOTHYROXINE SODIUM 75 MCG TABLET PO SCH (05:55)
[2022-03-23] MEDS: guaiFENesin/DEXTROM SYRUP 200MG/20MG 10ML UDC PO SCH ×2 (05:55→13:55)
[2022-03-23] MEDS: SODIUM CHLOR 7% 4 ML NEB NEB SCH (07:12)
[2022-03-23 07:23] LABS: Hematocrit (blood only) 42.8 % (37-47); Mean Corpuscular Hemoglobin 31.1 pg (25-34); Mean Corpuscular Hgb Conc 32.7 g/dL (32-36); Mean Corpuscular Volume 95.1 fL (80-100); Mean Platelet Volume 9.1 fL (7.4-10.4); Platelet Count 260 K/uL (130-400); RDW Coefficient of Variation 14.9 % (11.5-14.5); RDW Standard Deviation 52.1 fL (36.4-46.3); White Blood Count 9.96 K/uL (4.8-10.8)
--- NOTE | 2022-03-23 07:23 | XRay Report ---
XR chest 1V portable CLINICAL HISTORY: f/u COMPARISON STUDY: Chest CT March 18, 2022. Chest radiograph March 22, 2022. FINDINGS: Right basilar pleural pigtail catheter is in place. The right lower hemithorax mass-like op acity is better depicted on prior chest CT. Suspected trace right apical pneumothorax is unchanged. P ulmonary vascular congestion persists. Cardiomegaly is again noted. There may be mild left basilar op acity. No left pneumothorax is present. IMPRESSION: 1. No change in appearance of the chest. Right basilar pleural catheter in place with trace right api mansi pneumothorax. 2. Cardiomegaly with pulmonary vascular congestion. ACT 112: Negative or not required by law. Electronically signed by: Danie Garcia M.D. 03/23/2022 7:22 AM
[2022-03-23 07:25] LABS: BUN Creatinine Ratio 18.4 (10-20); Calcium 8.7 mg/dl (8.5-10.1); Creatinine Clr Calc Pharmacy 34.1 ml/min; Est GFR (African American) 60.5 ml/min; Est GFR (Non-African American) 52.2 ml/min; Magnesium 1.9 mg/dl (1.7-2.4); Potassium 3.9 mmol/L (3.5-5.1)
[2022-03-23] MEDS ORDERED: OPTIRAY 320 100ml IV ONE (08:08)
[2022-03-23] MEDS: TIMOLOL GFS 0.5% OPH SOLN 74 DROPS/5 ML BTL OP SCH (08:15)
[2022-03-23] MEDS: VALSARTAN/SACUBITRIL 51/49 MG TAB PO SCH (08:15)
[2022-03-23] MEDS: CHOLECALCIFEROL 1,000 UNITS 25 MCG TAB PO SCH (08:15)
[2022-03-23] MEDS: FERROUS SULFATE 325 MG TAB PO SCH (08:15)
[2022-03-23] MEDS: CALCIUM 600MG + VIT D 400 IU TAB PO SCH (08:15)
[2022-03-23] MEDS: UMECLIDINIUM BROMIDE 62.5MCG/BLISTER 7 PUFFS/INHALER INH SCH (08:16)
[2022-03-23] MEDS: METOPROLOL SUCC 50MG EXT REL TAB PO SCH (08:16)
[2022-03-23] MEDS: cefTRIAXone SODIUM 1,000 MG in DEXTROSE 5% 50 ML IV SCH (08:18)
--- NOTE | 2022-03-23 08:36 | CT Scan Report ---
CT chest diagnostic w con CLINICAL HISTORY: f/u rll loculated effusion TECHNIQUE: Multidetector row helical CT of the chest was performed with intravenous contrast. Coronal and sagittal reformations were obtained. Automated dose lowering techniques and/or adjustment accord ing to patient size were utilized for this exam. CT DOSE: 203.21 mGy.cm Comparison: Comparison is made to CT chest 03/18/2022 FINDINGS: Lungs and pleura: Again seen is a heterogeneous density in the right lower lobe with vascular marking s, unchanged from prior exam. No significant pleural effusion is seen. A right chest tube has been pl aced. Biapical emphysema and mild atelectatic changes are seen. Heart and pericardium: Cardiomegaly is seen with biatrial enlargement. Vessels: The pulmonary trunk is enlarged measuring 31 millimeters. Mediastinum and ruben: Subcentimeter lymph nodes are seen. In addition there is a 15 mm subcarinal lym ph node. Chest wall and lower neck: Unremarkable. Abdomen: Unremarkable. Bones: Degenerative changes in the thoracic spine. IMPRESSION: 1. Right lower lobe heterogeneous density is unchanged from prior exam. This may represent neoplasm, atelectasis, and/or pneumonia. 2. No significant pleural effusion. Status post right chest tube placement. 3. Lymphadenopathy most pronounced in the subcarinal station. 4. Cardiomegaly and pulmonary hypertension. ACT 112: Negative or not required by law. Electronically signed by: Cristiano Acosta M.D. 03/23/2022 8:35 AM
--- NOTE | 2022-03-23 10:33 | Pulmonology Progress Note ---
Date of Service March 23, 2022 Assessment & Plan (1) Pleural effusion: (2) Abnormal chest CT: (3) COPD (chronic obstructive pulmonary disease): (4) Right lower lobe lung mass: Plan: CT chest 03/08/2022 personally reviewed: Centrilobular emphysema appreciated bilaterally Right apical pleural scarring Right lower lobe pleural effusion with septation, mass cannot be ruled out Mediastinal lymphadenopathy This is new compared to CT chest which was done in 2008 -- Right-sided complicated pleural effusion Patient did have cough but denies any pleuritic chest pain Patient has systolic CHF, chronic right-sided pleural effusion can give septation and similar presentation Malignancy cannot be ruled out especially in somebody who is a heavy smoker Covid 19 PCR negative Influenza A/B negative S/p pigtail catheter placement 03/20/2022, exudative as per lights criteria Cytology negative for malignancy * 2 Cultures negative to date Mist 2 protocol --COPD with emphysema Not on any inhalers at home PFT as an outpatient Consideration of Incruse prior to discharge -- Current smoker [id number] smoking history Advised to quit Plan: CT chest from today does not show any right-sided pleural effusion with a right lower lobe opacity still persist. Cytology has been negative. I had sent the cytology again yesterday from the chest tube to see if it shows anything. If the repeat cytology is negative then patient will likely need a CT-guided biopsy of the right lower lobe opacity to rule out malignancy. I will discontinue the chest tube today. This was explained to the patient, she understands the plan. Case was discussed with CONG Glass and Dr. Coleman Please note the above document was generated using voice recognition software. It may contain grammatical, syntax or spelling errors.Any formal questions or concerns about the content, text or information contained within the body of this dictation should be directly addressed to the provider for clarification. Admission and Anticipated Discharge Date Admission Date: March 19, 2022 Subjective Patient seen and examined at bedside. No acute distress, no events overnight. Mild discomfort at the site of the chest tube. Denies any chest pain, says still been coughing. Not bringing up any phlegm Has been using flutter valve. Fair appetite. Did not get some sleep. Review of Systems Review of Systems: All systems reviewed & are unremarkable except as noted in Subjective Physical Exam Physical Exam: Constitutional: No acute distress HEENT: EOMI, PERRLA Respiratory system: Decreased air entry bilaterally, no wheeze, no rhonchi, positive crackles bilateral lower lobes CVS: S1-S2 positive, no murmurs or gallops Abdomen: Soft, nontender, nondistended, positive bowel sounds x4 Extremities: +2 pulses bilaterally radialis/ dorsalis pedis, no cyanosis, no edema Neuro: Awake alert oriented x3 Psych: Normal mood and affect G/U: No Patricia Skin: no rashes, warm and dry Lymphatic: no cervical or axillary lymphadenopathy Results & Data Results & Data ([facility]) Vital Signs (Past 12 Hours) Vital Signs Temp Pulse Pulse Resp BP Pulse Ox 03/23/22 08:27 36.7 C 86 18 110/66 93 03/23/22 07:13 74 16 93 03/23/22 03:41 37.0 C 76 16 126/78 91 03/22/22 23:30 75 03/22/22 22:45 36.7 C 97 H 18 126/78 90 Laboratory Results 03/23/22 06:36 03/23/22 06:36 PG Care Time/CCT Total # of Minutes Spent Total Time Spent with Patient: Total time spent is greater than 50% in coordination of care (as documented) at patient's floor/unit and/or counseling patient: Coding Level of Care Code 87603 Subseq Hosp Care Lvl 2 Diagnoses Pleural effusion J90 Abnormal chest CT R93.89 COPD (chronic obstructive pulmonary disease) J44.9 Right lower lobe lung mass R91.8
--- NOTE | 2022-03-23 10:34 | Procedure Note ---
Procedure Note Date of Service March 23, 2022 Note Procedure: Pigtail chest tube removal Team Cdl Driver: Dr. Marc Price Consent: Verbal consent was obtained Anesthesia: None Procedure: Under aseptic condition. Patient's dressing was removed. The pigtail wire was released and removed slowly on examination. The tube was found to be intact. The site was cleaned and dressed with Vaseline gauze and 4 x 4. Patient tolerated the procedure well. Complications: None Blood loss: None Coding CPT Codes Pulmonary/Thoracic - Pulmonary and Thoracic: 71632 Remove lung catheter ([id number]) [facility] – [place] Procedure Codes (Charges) Pulmonary/Thoracic Procedure 1: Pulmonary and Thoracic: 62899 Remove lung catheter
--- NOTE | 2022-03-27 17:08 | Discharge Summary ---
Date of Service March 23, 2022 Admission HPI Per Admitting Provider The patient is a 86-year-old female with a past medical history including atrial fibrillation, hypertension, CHF, glaucoma, hypothyroidism, chronic anticoagulation with Xarelto. She presents to the emergency department with 24 hours of intermittently productive cough and shortness of breath after attending a gathering with children present. She was found to be hypoxic with a pulse ox of 89% on room air upon arrival to the ED, which improved with placement of 2 L nasal cannula. She does report an approximate 40 pound weight loss over the past year, that she attributes to no interest in eating. Abnormal laboratories: WBC 13.32, hemoglobin 13.4, hematocrit 41.2, total bilirubin 1.4, highly sensitive troponin 15.8 and BNP 876. Imaging studies: Chest x-ray with right pleural effusion CT angiography of chest shows a mass at the right base, and a right lower lobe pneumonia Principal Diagnosis Pneumonia Discharge Exam Constitutional WD/WN, vitals as above Eyes EOM intact bilaterally; no conjunctival abnormality ENMT external ear and nose normal, oropharynx normal Neck trachea midline, no thyromegaly normal visual inspection Respiratory normal respiratory effort, lungs clear to auscultation + cough; no respiratory distress Cardiovascular RRR, no murmur, no edema Gastrointestinal (Abdomen) Inspection/Auscultation: abdomen normal to inspection; abdomen not distended Musculoskeletal no cyanosis or clubbing, extremities motor strength 5/5 Skin no rashes, warm and dry Neurologic moves all extremities and awake Psychiatric Orientation: alert, oriented to person and cooperative Discharge Data Allergies Allergy/AdvReac Type Severity Reaction Status Date / Time atorvastatin Allergy Unknown LOUIS's Verified 03/19/22 00:45 bupropion Allergy Unknown LOUIS's Verified 03/19/22 00:45 ARTUR Inhibitors AdvReac Unknown Cough Verified 03/19/22 00:45 Consultations 03/19/22 00:29 ED Decision to Admit Stat 03/19/22 15:35 Consult Pulmonology Routine Ordered Studies 03/18/22 22:57 CT angio chest PE protocol Urgent 03/19/22 16:54 US point of care ultrasound Urgent 03/20/22 08:33 US point of care ultrasound Urgent 03/23/22 08:00 CT chest diagnostic w con Routine Hospital Course (1) Pneumonia of right lower lobe due to infectious organism: Right lower lobe pneumonia with loculated pleural effusion. Possible RLL neoplasm, but considered less likely per pulm. COVID-19, RSV and influenza testing all negative. - Finished azithromycin on 03/21 - Duonebs PRN - Robitussin-DM 10 mils p.o. every 6 hours as needed cough - Added MRSA nares swab on 03/21 for increased leukocytosis - negative - Cytology from 03/20 - negative - Pulmonary consulted - Undergoing MIST2 protocol at this time. - Completed course of ceftriaxone Appreciate input from Pulmonary CT chest from today does not show any right-sided pleural effusion with a right lower lobe opacity still persist. Cytology has been negative. Cytology is negatitve. patient will likely need a CT-guided biopsy of the right lower lobe opacity to rule out malignancy. This will be scheduled (2) Elevated troponin I level: Highly sensitive troponin 15.8, then down. Demand ischemia. No indication of active cardiac issue. (3) Atrial fibrillation: Permanent. - Continue digoxin, beta-harley - Hold anticoagulation while with chest tube (4) Hypoxia: Due to pneumonia. Improved with nasal cannula oxygen. - Resolved; now on room air. (5) Hypertension: BP is 100/80. - Continue digoxin, metoprolol succinate, Entresto. (6) Hypothyroidism (acquired): Last TSH in 2017. - Continue levothyroxine 75 mcg - Repeat TSH in AM (7) Glaucoma: - Continue timolol and latanoprost eyedrops Total Time Total Time Spent Total Time Spent (In Minutes): 35 Discharge Plan Discharge Items Patient Disposition: Home - Self-Care Reason For Visit: ELEV TROPONIN, PNEUMONIA, HYPOXIA Discharge Diagnosis: consolidation of lung Activity: Resume your previous activity Non-emergency contact: Primary Care Provider Call non-emergency contact if: you have any medication questions Follow-up/Referrals: Georgiana Serrato DO [Primary Care Provider] - Diet: Heart Healthy Addtl Attending Provider Instructions: You have been hospitalized for an acute medical problem. During your stay at , we have made an effort to correct the problem that brought you to the hospital while keeping you as comfortable as possible. Medications were used to bring your condition under control and your discharge instructions will include directions for any medications you should take after leaving the hospital. Please make sure you see your Primary Care Provider as part of your follow up plan. You completed treatment with antibiotics. If you develop fever, chills, nausea, worsening SOB, please return. You will need a BIOPSY OF THE LESION. This will be scheduled for you. Will resume your xarelto tomorrow Saturday. Will recommend holding it prior to the procedure. Specific Instructions will be given once procedure is scheduled. Pending Studies at Discharge: No Stand-Alone Forms: [facility], Smoking Cessation Medications and DC Order Prescriptions: New Incruse Ellipta 62.5 mcg/actuation Blister With Device 1 inh inhalation DAILY Qty: 30 RF: 0 Continued metoprolol succinate 50 mg tablet extended release 24 hr 50 mg PO BID RF: 0 furosemide 40 mg tablet 40 mg PO DAILY PRN (Reason: swelling) RF: 0 latanoprost 0.005 % drops 1 drp OPB HS RF: 0 levothyroxine 75 mcg tablet 75 mcg PO DAILY RF: 0 calcium carbonate [Calcium 600] 600 mg calcium (1,500 mg) Tablet 600 mg PO BID RF: 0 cholecalciferol (vitamin D3) [Vitamin D3] 1,000 unit Capsule 1,000 unit PO DAILY RF: 0 Xarelto 15 mg tablet 15 mg PO QPM RF: 0 timolol maleate [Timoptic] 0.25 % Drops 1 drp OPHTHALMIC (EYE) QAM RF: 0 digoxin 250 mcg (0.25 mg) tablet 250 mcg PO UD RF: 0 ferrous sulfate 325 mg (65 mg iron) Tablet 325 mg PO DAILY RF: 0 Entresto 49-51 mg tablet 1 tab PO BID RF: 0 Discharge Orders: Discharge Order (Routine); Ordered 03/23/22 Ordered By: Kirill Lane/Other Patient Handouts: Chest Tubes Admission Data Admit Date/Time: 03/19/22 01:15 Attending Provider: Kirill Coleman Admit Provider: Scott Duque Primary Care Provider: Georgiana Serrato Other Providers: Abdirashid Estrada ; Scott Duque ; Marc Price Other Interventions: Discharge Summary Assessment (RN) Last Done: 03/23/22 14:28 Coding Level of Care Code D/C DAY MANAGEMENT >30 MINS Diagnoses Pneumonia of right lower lobe due to infectious organism J18.9 Elevated troponin I level R77.8 Atrial fibrillation I48.91 Hypoxia R09.02 Hypertension I10 Hypothyroidism (acquired) E03.9 Glaucoma H40.9
== END 2022-03-23 16:15 | disposition home or self-care (01) | DRG 180 ==
LOC: ED 21:28 → SUATTDRO 03-19 01:15 → EDINP 03-19 01:15 → 1E 03-19 04:12 → 2S 03-21 13:12